=== PATIENT | male | born 1990 | race Caucasian/White ===

== ENCOUNTER 2021-07-15 17:36 | Emergency (ER) | payer OTHER, SELFPAY ==
[2021-07-15 17:47] VITALS: BP 143/99; PULSE 106; RESP 16; TEMP 36.7; O2SAT 97; BMI 36.8
--- NOTE | 2021-07-15 18:38 | XRR_ITS ---
PROCEDURE INFORMATION: Exam: XR Chest Exam date and time: 07/15/2021 6:46 PM Age: 31 years old Clinical indication: Pain; Angina pectoris; Additional info: Cp starting this morning TECHNIQUE: Imaging protocol: XR of the chest. Views: 1 view. COMPARISON: No relevant prior studies available. FINDINGS: Lungs: Unremarkable. No consolidation. Pleural spaces: Unremarkable. No pleural effusion. No pneumothorax. Heart/Mediastinum: Unremarkable. No cardiomegaly. Bones/joints: Unremarkable. XR/XR chest 1V portable [id number] IMPRESSION: No acute findings.
--- NOTE | 2021-07-15 18:39 | ECG_ITS ---
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 Measurements Intervals [place] Rate: 102 P: 54 [place]: 148 QRS: 114 QRSD: 115 T: 11 QT: 338 QTc: 441 Interpretive Statements SINUS TACHYCARDIA POSSIBLE RIGHT VENTRICULAR HYPERTROPHY [SOME/ALL OF: PROMINENT R IN V1, LATE TRANSITION, RAD, SOLA, SSS] No previous ECG available for comparison Electronically Signed On 07-17-2021 9:35:58 CDT by Bernardo Olvera M.D. [id number]
--- NOTE | 2021-07-15 18:43 | ED_ITS ---
HPI - Chest Pain General: Chief Complaint: Chest Pain Stated Complaint: Chest Pain Time Seen by Provider: 07/15/21 17:55 Source: patient Mode of arrival: ambulatory Limitations: no limitations History of Present Illness: 31-year-old male who states has been having chest pain this evening. States the pain is a sharp pain left side of his chest with radiation to his shoulder. He states been going on for roughly 1 to 2 hours. Denies any worsening proving factors denies any shortness of breath. He has no history of coronary artery disease. No cough or fever. Associated symptoms: Deny abdominal pain, dyspnea, fever(s), nausea or vomiting Review of Systems Const: Denies: fever(s), chills, body aches or change in appetite Eyes: Denies: blurry vision or eye discomfort ENMT: Denies: throat pain or dental pain Card: Reports: chest pain Resp: Denies: dyspnea GI: Denies: abdominal pain, nausea, vomiting or diarrhea : Denies: dysuria Musc: Denies: neck pain or back pain Skin/Breast: Denies: rash Neuro: Denies: headache(s) Psych: Denies: depression Rosendo/Lymph: Denies: easy bruising All/Imm: Denies: urticaria PFSH ED PFSH: Medical History (Updated 07/15/21 @ 22:01 by Jairon Tang MD) No pertinent family history Social History (Updated 07/15/21 @ 18:44 by Jairon Tang MD) Smoking and tobacco status: never smoked Physical Exam Const: COMMON NORMALS: no acute distress, patient oriented x3 and healthy appearing HENMT: COMMON NORMALS: normocephalic and atraumatic HEAD & SCALP: normocephalic and atraumatic Eye: COMMON NORMALS: Equal, round and reactive pupils present and EOMs intact bilaterally PUPIL: Yes Equal, round and reactive pupils present Neck/C-Spine: COMMON NORMALS: full ROM and supple Chest: COMMONS NORMALS: normal inspection of the chest and normal palpation of entire chest wall Resp: COMMON NORMALS: normal respiratory effort, No retractions, No use of accessory muscles and clear to auscultation bilaterally AUSCULTATION: clear to auscultation bilaterally Cardio: COMMON NORMALS: regular rate, regular rhythm and No murmurs present (Cardio) RATE: regular rate RHYTHM: regular rhythm GI: COMMON NORMALS: Normal to inspection, nondistended, normoactive bowel sounds present, Soft to palpation, non-tender and no masses PALPATION: Yes Soft to palpation Extremity: COMMON NORMALS: normal to inspection and full ROM Neuro: COMMON NORMALS: patient oriented x3, moves all extremities and no focal motor deficits Psych: COMMON NORMALS: mental status grossly normal, Normal thought process present and cooperative THOUGHT PROCESS: Normal thought process present Skin: COMMON NORMALS: no rashes or lesions noted and no wounds GENERAL SKIN EXAM: no rashes or lesions noted Course Vital Signs: Vital signs: Vital Signs Temperature 98.1 F 07/15/21 17:47 Pulse Rate 79 07/15/21 22:50 Respiratory Rate 16 07/15/21 22:50 Blood Pressure 149/83 07/15/21 22:50 Pulse Oximetry 97 07/15/21 22:50 MDM - Chest Pain Medical Decision Making Patient presents for chest pain is atypical in nature he is healthy with no risk factors initial repeat troponins here are both negative EKG is normal CT shows no signs of dissection or pulmonary embolism he stable for discharge he is to follow-up outpatient with cardiology and return if worsening he understands and agrees to the plan. Lab Data : 07/15/21 18:30 07/15/21 18:30 Radiology Impressions Chest X-Ray 07/15/21 18:38 IMPRESSION: No acute findings. Chest CTA 07/15/21 22:05 IMPRESSION: 1. Negative for pulmonary embolus or airspace infiltrate. 2. Scattered subcentimeter short axis mediastinal lymph nodes, nonspecific. 3. Small hiatal hernia. 4. Cholecystectomy. 5. Cardiomegaly suspected. Laboratory Results WBC 9.2 10^3/uL (4.0-10.0) 07/15/21 18:30 RBC 6.01 10^6/uL (4.1-5.3) H 07/15/21 18:30 Hgb 16.9 g/dL (11.7-16.6) H 07/15/21 18:30 Hct 51.0 % (42.0-52.0) 07/15/21 18:30 MCV 84.9 fl (80-94) 07/15/21 18:30 MCH 28.1 pg (28.0-34.0) 07/15/21 18:30 MCHC 33.1 g/dL (30.0-36.0) 07/15/21 18:30 RDW 12.7 % (12.1-15.1) 07/15/21 18:30 Plt Count 223 10^3/cmm (130-400) 07/15/21 18:30 MPV 9.8 fL (7.4-10.4) 07/15/21 18:30 Neut % (Auto) 60.4 % 07/15/21 18:30 Lymph % (Auto) 30.5 % 07/15/21 18:30 [place] % (Auto) 7.8 % 07/15/21 18:30 Eos % (Auto) 0.8 % 07/15/21 18: Baso % (Auto) 0.3 % 07/15/21 18: Neut # (Auto) 5.54 10^3/uL (1.8-7.7) 07/15/21 18: Lymph # (Auto) 2.8 10^3/uL (0.8-4.8) 07/15/21 18:30 [place] # (Auto) 0.7 10^3/uL (0.2-0.9) 07/15/21 18:30 Eos # (Auto) 0.1 10^3/uL (0.0-0.8) 07/15/21 18: Baso # (Auto) 0.0 10^3/uL (0.0-0.1) 07/15/21 18:30 Nucleated RBC % (auto) 0 % 07/15/21 18: Nucleated RBCs # 0.0 /100WBC 07/15/21 18: PT 13.30 SECONDS (12.1-14.9) 07/15/21 18:30 INR 0.98 (0.8-1.2) 07/15/21 18: D-Dimer 0.21 ug/mIFEU (0-0.59) 07/15/21 18:30 Sodium 140 mmol/L (136-145) 07/15/21 18:30 Potassium 3.6 mmol/L (3.5-5.1) 07/15/21 18: Chloride 103 mmol/L (98-107) 07/15/21 18: Carbon Dioxide 25 mmol/L (22-29) 07/15/21 18:30 Anion Gap 15.6 (5-19) 07/15/21 18:30 BUN 12 mg/dL (6-20) 07/15/21 18:30 Creatinine 1.0 mg/dL (0.7-1.2) 07/15/21 18:30 GFR Calculation 86.6 mL/min (90-130) L 07/15/21 18:30 Glucose 110 mg/dL (65-115) 07/15/21 18:30 Calculated Osmolality 290 mOsm/kg (285-295) 07/15/21 18:30 Calcium 10.1 mg/dL (8.5-10.5) 07/15/21 18:30 Total Bilirubin 0.4 mg/dL (0.15-1.2) 07/15/21 18:30 AST 29 U/L (0-40) 07/15/21 18:30 ALT 52 U/L (0-41) H 07/15/21 18:30 Alkaline Phosphatase 85 IU/L (40-130) 07/15/21 18:30 Troponin T Baseline 6 ng/L (0-15) 07/15/21 18:30 Troponin T 120 Minute 6.00 ng/L (0-15) 07/15/21 21:00 Delta Troponin T 0 ABS# (0-10) 07/15/21 21:00 NT-Pro-B Natriuret Pep 5 pg/mL (0-125) 07/15/21 18:30 Total Protein 7.3 g/dL (6.6-8.7) 07/15/21 18:30 Albumin 4.6 g/dL (3.5-5.2) 07/15/21 18:30 Globulin 2.7 g/dL (1.3-4.6) 07/15/21 18:30 EKG Data EKG 1: I personally reviewed and interpreted this EKG as follows: EKG interpretation date: 07/15/21 EKG interpretation time: 17:45 Interpretation: sinus tach hr [address] or t wave abnormalities qrs 115 qtc 397 Discharge Plan Discharge Patient Disposition: Home Clinical Impression: Chest pain Qualifiers: Chest pain type: unspecified Qualified Code(s): R07.9 - Chest pain, unspecified Prescriptions: New hydrocodone-acetaminophen 5-325 mg tablet 1 tab PO Q6H PRN (Reason: pain) Qty: 14 0RF Discharge Orders: Discharge ED (Routine); Ordered 07/15/21 Ordered By: Jairon Tang Referrals: Lori Walker MD [Physician] - 1-3 days Discharge Diet: Advance as tolerated Discharge Activity: Resume usual activity Patient Instructions: Chest Pain (ED) Coding Level of Care Code ED Manager Privacy for Chg Fwd Exam Comprehensive
[2021-07-15 18:53] VITALS: BP 143/99; PULSE 97; RESP 96; O2SAT 96
--- NOTE | 2021-07-15 18:56 | PC.NURSE ---
quality assurance monitor body placed on patient, ekg complete and given to provider. Patient in bed, denies any needs at this time. Family at bedside, call light within reach.
[2021-07-15 19:01] VITALS: BP 130/92; PULSE 95; RESP 20; O2SAT 96
[2021-07-15 19:17] LABS: Basophils % 0.3 %; Eosinophils # 0.1 10^3/uL (0.0-0.8); Eosinophils % 0.8 %; Hemoglobin 16.9 g/dL (11.7-16.6); Lymphocytes # 2.8 10^3/uL (0.8-4.8); Lymphocytes % 30.5 %; Mean Corpuscular HGB Conc 33.1 g/dL (30.0-36.0); Mean Corpuscular Hemoglobin 28.1 pg (28.0-34.0); Mean Corpuscular Volume 84.9 fl (80-94); Mean Platelet Volume 9.8 fL (7.4-10.4); Monocytes # 0.7 10^3/uL (0.2-0.9); Monocytes % 7.8 %; Neutrophils # 5.54 10^3/uL (1.8-7.7); Neutrophils % 60.4 %; Nucleated Red Blood Cells % 0 %; Platelet Count 223 10^3/cmm (130-400); Red Blood Count 6.01 10^6/uL (4.1-5.3); Red Cell Distribution Width 12.7 % (12.1-15.1); White Blood Count 9.2 10^3/uL (4.0-10.0)
--- NOTE | 2021-07-15 19:19 | PC.NURSE ---
Report given to Fabrizio CAR.
[2021-07-15 19:50] LABS: Troponin(5th) Baseline 6 ng/L (0-15)
[2021-07-15 19:54] LABS: D Dimer 0.21 ug/mIFEU (0-0.59); INR 0.98 (0.8-1.2)
[2021-07-15 20:00] LABS: Alanine Aminotransferase 52 U/L (0-41); Albumin Level 4.6 g/dL (3.5-5.2); Alkaline Phosphatase 85 IU/L (40-130); Anion Gap 15.6 (5-19); Aspartate Amino Transferase 29 U/L (0-40); Blood Urea Nitrogen 12 mg/dL (6-20); Calcium 10.1 mg/dL (8.5-10.5); Carbon Dioxide 25 mmol/L (22-29); Chloride 103 mmol/L (98-107); Globulin 2.7 g/dL (1.3-4.6); Glomerular Filtration Rate 86.6 mL/min (90-130); Glucose 110 mg/dL (65-115); NT Pro B Type Natriuretic Pept 5 pg/mL (0-125); Osmolality Calculated 290 mOsm/kg (285-295); Potassium 3.6 mmol/L (3.5-5.1); Sodium 140 mmol/L (136-145); Total Bilirubin 0.4 mg/dL (0.15-1.2); Total Protein 7.3 g/dL (6.6-8.7)
[2021-07-15 21:58] VITALS: BP 155/93; PULSE 79; RESP 16; O2SAT 97
--- NOTE | 2021-07-15 22:05 | CTR_ITS ---
PROCEDURE INFORMATION: Exam: CTA Chest With Contrast Exam date and time: 07/15/2021 10:23 PM Age: 31 years old Clinical indication: Shortness of breath; Chest pressure; Patient HX: C/O chest pain with SOB. Patient states history of cardiomegaly. TECHNIQUE: Imaging protocol: Computed tomographic angiography of the chest with contrast. 3D rendering (Not supervised by radiologist): MIP and/or 3D reconstructed images were created by the technologist. Radiation optimization: All CT scans at this facility use at least one of these dose optimization techniques: automated exposure control; mA and/or kV adjustment per patient size (includes targeted exams where dose is matched to clinical indication); or iterative reconstruction. Contrast material: OMNI 350; Contrast volume: 79 ml; Contrast route: INTRAVENOUS (IV); COMPARISON: CR (CHEST, ) 07/15/2021 6:46 PM RADIATION DOSE METRICS: Total DLP (mGy-cm): 595.84 FINDINGS: Pulmonary arteries: Normal. No pulmonary emboli. Aorta: Unremarkable. No aortic aneurysm. No aortic dissection. Lungs: Unremarkable. No consolidation. No masses. Pleural spaces: Unremarkable. No pneumothorax. No pleural effusion. Heart: Cardiomegaly suspected. Lymph nodes: Scattered subcentimeter short axis mediastinal lymph nodes, nonspecific. Diaphragm: Small hiatal hernia. Gallbladder and bile ducts: Cholecystectomy. Bones/joints: Unremarkable. No acute fracture. Soft tissues: Unremarkable. CT/CT angio chest PE protcl [id number] IMPRESSION: 1. Negative for pulmonary embolus or airspace infiltrate. 2. Scattered subcentimeter short axis mediastinal lymph nodes, nonspecific. 3. Small hiatal hernia. 4. Cholecystectomy. 5. Cardiomegaly suspected.
[2021-07-15 22:10] LABS: Troponin 5 2HR Delta 0 ABS# (0-10)
[2021-07-15 22:11] VITALS: RESP 16
[2021-07-15] MEDS: morphine 4 mg/mL SDV 1 mL IVP (22:11)
[2021-07-15] MEDS: ondansetron 2 mg/ML SDV 2 mL 4 MG IVP (22:12)
[2021-07-15 22:50] VITALS: BP 149/83; PULSE 79; RESP 16; O2SAT 97
--- NOTE | 2021-07-16 10:05 | DCPLANNER ---
Addendum entered by Cinthia Bella 09/11/21 18:00: Patient had a follow up appointment scheduled for 09.09.21 with [facility] - patient did not attend appointment. Addendum entered by Cinthia Bella 07/17/21 13:23: occupational health nurse manager called phone number [phone] to give patient appointment information. occupational health nurse manager was unable to speak with patient at this time, a voicemail was left for patient to return social work case manager phone call. occupational health nurse manager sent patient a letter with appointment information. Addendum entered by Cinthia Bella 07/16/21 15:08: Patient has a follow up appointment scheduled for Thursday, September 09, 2021 at 10:[address] Walker. occupational health nurse manager called phone number [phone], unable to speak with patient at this time, a voicemail was left for patient to return social work case manager phone call. Original Note: occupational health nurse manager had message to schedule a follow up appointment for patient with [facility]. occupational health nurse manager sent patients information to the front staff at [facility] thru the workload system. Patients information will be printed and reviewed. Clinic will call notify case briefer of appointment information. occupational health nurse manager will call patient with appointment information.
== END 2021-07-15 22:51 | disposition home or self-care (01) ==
PROVIDERS: Emergency Provider Emergency Medicine
DX: R07.9 Chest pain, unspecified (principal); K44.9 Diaphragmatic hernia without obstruction or gangrene
CPT/HCPCS: 71045; 71275; 80053; 83880; 84484; 85025; 85378; 85610; 93005; 96374; 96375; 99284; J2270; J2405; Q9967

== ENCOUNTER 2022-06-08 15:29 | Emergency (ER) | payer SELFPAY ==
[2022-06-08 15:32] VITALS: BP 165/113; PULSE 80; RESP 16; TEMP 36.8; O2SAT 98; BMI 37.5
--- NOTE | 2022-06-08 15:44 | CTR_ITS ---
PROCEDURE INFORMATION: Exam: CT Head Without Contrast Exam date and time: 06/08/2022 3:52 PM Age: 32 years old Clinical indication: Weakness, extremity and weakness, facial; Left; Additional info: L side weakness TECHNIQUE: Imaging protocol: Computed tomography of the head without contrast. Radiation optimization: All CT scans at this facility use at least one of these dose optimization techniques: automated exposure control; mA and/or kV adjustment per patient size (includes targeted exams where dose is matched to clinical indication); or iterative reconstruction. REPORTING DATA: Count of CT and Cardiac NM exams in prior 12 months: This patient has received [address] and 0 known cardiac nuclear medicine studies in the 12 months prior to the current study. COMPARISON: No relevant prior studies available. RADIATION DOSE METRICS: Total DLP (mGy-cm): 1194.58 FINDINGS: Brain: Normal. No hemorrhage. Unremarkable white matter. No mass effect. Cerebral ventricles: No ventriculomegaly. Paranasal sinuses: Visualized sinuses are unremarkable. No fluid levels. Mastoid air cells: Visualized mastoid air cells are well aerated. Bones/joints: Unremarkable. No acute fracture. Soft tissues: Unremarkable. CT/CT head wo con* [id number] IMPRESSION: No acute intracranial abnormality.
--- NOTE | 2022-06-08 15:44 | XRR_ITS ---
PROCEDURE INFORMATION: Exam: XR Chest Exam date and time: 06/08/2022 3:54 PM Age: 32 years old Clinical indication: Cough and dyspnea; Additional info: Dyspnea/cough TECHNIQUE: Imaging protocol: Radiologic exam of the chest. Views: 1 view. COMPARISON: CR XR chest 1V portable [id number] 07/15/2021 6:46 PM FINDINGS: Lungs: Unremarkable. No consolidation. Pleural spaces: Unremarkable. No pleural effusion. No pneumothorax. Heart/Mediastinum: Unremarkable. No cardiomegaly. Bones/joints: Unremarkable. XR/XR chest 1V portable [id number] IMPRESSION: No acute findings.
--- NOTE | 2022-06-08 15:45 | PC.NURSE ---
PT PLACED ON CONTINUOUS SPO2, NIBP, AND CM.
--- NOTE | 2022-06-08 15:49 | ECG_ITS ---
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 [id number]
[2022-06-08 15:58] LABS: Basophils % 0.2 %; Eosinophils # 0.1 10^3/uL (0.0-0.8); Eosinophils % 1.4 %; Hematocrit 46.3 % (42.0-52.0); Hemoglobin 15.7 g/dL (11.7-16.6); Lymphocytes # 3.6 10^3/uL (0.8-4.8); Lymphocytes % 40.1 %; Mean Corpuscular HGB Conc 33.9 g/dL (30.0-36.0); Mean Corpuscular Hemoglobin 28.8 pg (28.0-34.0); Mean Corpuscular Volume 84.8 fl (80-94); Mean Platelet Volume 9.5 fL (7.4-10.4); Monocytes # 0.6 10^3/uL (0.2-0.9); Monocytes % 7.2 %; Neutrophils # 4.51 10^3/uL (1.8-7.7); Neutrophils % 50.9 %; Nucleated Red Blood Cells % 0 %; Platelet Count 216 10^3/cmm (130-400); Red Blood Count 5.46 10^6/uL (4.1-5.3); Red Cell Distribution Width 12.6 % (12.1-15.1); White Blood Count 8.9 10^3/uL (4.0-10.0)
[2022-06-08 16:14] LABS: Alanine Aminotransferase 61 U/L (0-41); Albumin Level 4.3 g/dL (3.5-5.2); Alkaline Phosphatase 90 U/L (40-130); Anion Gap 15.9 (5-19); Aspartate Amino Transferase 35 U/L (0-40); Blood Urea Nitrogen 10 mg/dL (6-20); Calcium 9.7 mg/dL (8.5-10.5); Carbon Dioxide 25 mmol/L (22-29); Chloride 103 mmol/L (98-107); Globulin 3.6 g/dL (1.3-4.6); Glomerular Filtration Rate 86.1 mL/min (90-130); Glucose 109 mg/dL (65-115); Osmolality Calculated 290 mOsm/kg (285-295); Potassium 3.9 mmol/L (3.5-5.1); Sodium 140 mmol/L (136-145); Total Bilirubin 0.3 mg/dL (0.15-1.2); Total Protein 7.9 g/dL (6.6-8.7)
--- NOTE | 2022-06-08 16:14 | ED_ITS ---
HPI - Weakness General: Chief complaint: Weakness Stated complaint: stroke like symptoms Time Seen by Provider: 06/08/22 15:42 Source: patient Mode of arrival: ambulatory History of Present Illness: 32-year-old male presents emergency room complaining of what he describes as strokelike symptoms he has pain on the left side of his face particularly across the zygomatic arch does not cross the midline he has not noticed any difficulty with speech or swallowing. He was concerned he was having a stroke. Pain is rather severe sudden onset today he has had similar symptoms in the past that were attributed to him having had a st roke. He generally feels weak and uncomfortable now but is able to ambulate here. MD Complaint: focal weakness Onset (ago): hour(s) Duration: constant Location: face Migration: none Severity: moderate Quality: sharp Relieving factors: none Exacerbating factors: none Associated symptoms: Denies chest pain, chills, confusion, melena, decreased appetite, diaphoresis, dysuria, easy bruising, fever(s), headache(s), myalgias, nausea, rash, short of breath, syncope or vomiting Review of Systems Const: Denies: fever(s), chills, fatigue, malaise or diaphoresis ENMT: Denies: throat pain, ear or mastoid pain, nasal discharge or nasal congestion Card: Denies: chest pain, palpitations, irregular heart rhythm, edema or syncope Resp: Denies: dyspnea, productive cough or non-productive cough GI: Denies: abdominal pain, nausea, vomiting or melena : Denies: dysuria, urinary frequency or urinary urgency Skin/Breast: Denies: rash or pruritus Neuro: Denies: headache(s) or confusion Rosendo/Lymph: Denies: easy bruising PFS ED PFSH: Medical History No pertinent family history Social History Smoking and tobacco status: never smoked Physical Exam Const: COMMON NORMALS: no acute distress GENERAL APPEARANCE: cooperative and comfortable ORIENTATION/CONSCIOUSNESS: Yes awake, Yes oriented to person, Yes oriented to place and Yes oriented to time HENMT: COMMON NORMALS: normocephalic, atraumatic, hearing grossly normal bilaterally, external ears normal, EAC's normal, TM's normal bilaterally, Normal nasal mucous membranes and turbinates present, moist oral mucous membranes and oropharynx normal HEAD & SCALP: normocephalic and atraumatic NOSE: Normal nasal mucous membranes and turbinates present EXTERNAL EAR: Yes external ears normal EXTERNAL AUDITORY CANAL: EAC's normal TYMPANIC MEMBRANE: TM's normal bilaterally Eye: COMMON NORMALS: Equal, round and reactive pupils present, EOMs intact bilaterally, conjunctivae normal and no scleral icterus CONJUNCTIVA: Yes conjunctivae normal PUPIL: Yes Equal, round and reactive pupils present Neck/C-Spine: COMMON NORMALS: full ROM, no lymphadenopathy, supple and no JVD Lymph: LYMPHATIC: no lymphadenopathy noted and no lymphedema noted Resp: COMMON NORMALS: normal respiratory effort, No retractions, No use of accessory muscles and clear to auscultation bilaterally AUSCULTATION: clear to auscultation bilaterally Cardio: COMMON NORMALS: no JVD, regular rate, regular rhythm and No murmurs present (Cardio) RATE: regular rate RHYTHM: regular rhythm GI: COMMON NORMALS: Soft to palpation and No hepatosplenomegaly present AUSCULTATION: Yes normoactive bowel sounds PALPATION: Yes Soft to palpation, No Tenderness to palpation present (GI), No Guarding due to palpation present (GI) and Yes No hepatosplenomegaly present Extremity: COMMON NORMALS: normal to inspection, capillary refill normal, no clubbing, cyanosis or edema, no calf tenderness and no pedal edema Neuro: SENSORIUM/ORIENTATION: Yes oriented to person, Yes oriented to place and Yes oriented to time Skin: COMMON NORMALS: no rashes or lesions noted GENERAL SKIN EXAM: no rashes or lesions noted Course Vital Signs: Vital signs: Vital Signs Temperature 98.2 F 06/08/22 15:32 Pulse Rate 82 06/08/22 17:43 Respiratory Rate 21 H 06/08/22 17:43 Blood Pressure 148/94 06/08/22 17:43 Pulse Oximetry 97 06/08/22 17:43 Oxygen Delivery Me thod 06/08/22 15:32 MDM - Weakness Medical Decision Making NIH done is 0 with the exception of altered sensation on the left side of the face and distribution of the facial nerve. [id number] rapid alternating movements hands are normal. Suspect based on the patient's presenting complaint he has a trigeminal neuralgia is describing a rather sharp pain he does not have any facial droop or ear pain associated with a Galvan's palsy we will start him on Tegretol have him follow-up with his primary care return if he has further problems Medical Records I reviewed the patient's medical records. Lab Data I reviewed the patient's lab results. 06/08/22 15:44 06/08/22 15:44 Radiology Impressions Chest X-Ray 06/08/22 15:44 IMPRESSION: No acute findings. Head CT 06/08/22 15:44 IMPRESSION: No acute intracranial abnormality. Laboratory Results WBC 8.9 10^3/uL (4.0-10.0) 06/08/22 15:44 RBC 5.46 10^6/uL (4.1-5.3) H 06/08/22 15:44 Hgb 15.7 g/dL (11.7-16.6) 06/08/22 15:44 Hct 46.3 % (42.0-52.0) 06/08/22 15:44 MCV 84.8 fl (80-94) 06/08/22 15:44 MCH 28.8 pg (28.0-34.0) 06/08/22 15:44 MCHC 33.9 g/dL (30.0-36.0) 06/08/22 15:44 RDW 12.6 % (12.1-15.1) 06/08/22 15:44 Plt Count 216 10^3/cmm (130-400) 06/08/22 15:44 MPV 9.5 fL (7.4-10.4) 06/08/22 15:44 Neut % (Auto) 50.9 % 06/08/22 15:44 Lymph % (Auto) 40.1 % 06/08/22 15:44 [place] % (Auto) 7.2 % 06/08/22 15:44 Eos % (Auto) 1.4 % 06/08/22 15:44 Baso % (Auto) 0.2 % 06/08/22 15:44 Neut # (Auto) 4.51 10^3/uL (1.8-7.7) 06/08/22 15:44 Lymph # (Auto) 3.6 10^3/uL (0.8-4.8) 06/08/22 15:44 [place] # (Auto) 0.6 10^3/uL (0.2-0.9) 06/08/22 15:44 Eos # (Auto) 0.1 10^3/uL (0.0-0.8) 06/08/22 15:44 Baso # (Auto) 0.0 10^3/uL (0.0-0.1) 06/08/22 15:44 Nucleated RBC % (auto) 0 % 06/08/22 15:44 Nucleated RBCs # 0.0 /100WBC 06/08/22 15:44 Sodium 140 mmol/L (136-145) 06/08/22 15:44 Potassium 3.9 mmol/L (3.5-5.1) 06/08/22 15:44 Chloride 103 mmol/L (98-107) 06/08/22 15:44 Carbon Dioxide 25 mmol/L (22-29) 06/08/22 15:44 Anion Gap 15.9 (5-19) 06/08/22 15:44 BUN 10 mg/dL (6-20) 06/08/22 15:44 Creatinine 1.0 mg/dL (0.7-1.2) 06/08/22 15:44 GFR Calculation 86.1 mL/min (90-130) L 06/08/22 15:44 Glucose 109 mg/dL (65-115) 06/08/22 15:44 Calculated Osmolality 290 mOsm/kg (285-295) 06/08/22 15:44 Calcium 9.7 mg/dL (8.5-10.5) 06/08/22 15:44 Total Bilirubin 0.3 mg/dL (0.15-1.2) 06/08/22 15:44 AST 35 U/L (0-40) 06/08/22 15:44 ALT 61 U/L (0-41) H 06/08/22 15:44 Alkaline Phosphatase 90 U/L (40-130) 06/08/22 15:44 Total Protein 7.9 g/dL (6.6-8.7) 06/08/22 15:44 Albumin 4.3 g/dL (3.5-5.2) 06/08/22 15:44 Globulin 3.6 g/dL (1.3-4.6) 06/08/22 15:44 Discharge Plan Discharge Patient Disposition: Home Clinical Impression: Trigeminal neuralgia Condition: Stable Prescriptions: New Tegretol 200 mg tablet 200 mg PO BID Qty: 60 0RF Discharge Orders: Discharge ED (Routine); Ordered 06/08/22 Ordered By: Jose Vera Discharge Diet: Usual diet Discharge Activity: Increase activity as tolerated Patient Instructions: Opioid Safety, Pain Management Activity Restrictions/Additional Instructions: You are seen today for facial pain and numbness. CT of your head was negative for stroke. You are being treated for trigeminal neuralgia take 1 tablet of carbamazepine twice daily. Case management make arrangements for you to follow- up with neurology. Coding Level of Care Code ED Press Operator Helper for Elizabeth Long
[2022-06-08 17:43] VITALS: BP 148/94; PULSE 82; RESP 21; O2SAT 97
--- NOTE | 2022-06-09 09:39 | DCPLANNER ---
Addendum entered by Cinthia Bella 06/30/22 08:34: Patient had a follow up appointment scheduled with neurology - patient did not attend appointment Addendum entered by Cinthia Bella 06/24/22 11:30: Patient has a follow up appointment scheduled for Tuesday, June 28, 2022 at 10:[address] Farmer at neurology. Clinic will call patient with appointment information. Original Note: automated teller manager had message to schedule a follow up appointment for patient with neurology. automated teller manager sent patients information to the front office staff at neurology. Patients information will be printed and reviewed. Clinic will call patient with appointment information.
== END 2022-06-08 17:44 | disposition home or self-care (01) ==
PROVIDERS: Emergency Provider Family Medicine
DX: G50.0 Trigeminal neuralgia (principal)
CPT/HCPCS: 70450; 71045; 80053; 85025; 93005; 99285

== ENCOUNTER 2022-12-29 13:22 | Outpatient (CLI) | payer BC, SELFPAY ==
--- NOTE | 2022-12-29 13:37 | MR_ITS ---
WS: [id number] MRI RIGHT KNEE NONCONTRAST TECHNIQUE: Axial PD, coronal PD fat sat, coronal PD, sagittal PD, and sagittal PD fat-sat images obta ined. CLINICAL INFORMATION: INSTABILITY OF R KNEE JOINT COMPARISON: None. FINDINGS: Some images degraded by patient motion. Distal quadriceps and patella tendons are intact. Hypertrophic patella. ACL appears intact. Normal PC L. Chronic appearing thinning of the medial and lateral meniscus. No acute appearing meniscal tears. Normal medial and lateral collateral ligament. Normal popliteus. Moderate chondromalacia patella. No subchondral edema. Normal medial and patellar retinaculum. Normal popliteal fossa. IMPRESSION: 1. ACL and PCL appear intact. 2. Moderate chondromalacia patella advanced for patient this age. No subchondral edema. 3. Medial and lateral collateral ligaments appear intact. 4. Chronic appearing thinning of the medial and lateral meniscus, worse in the medial meniscus. No a cute appearing meniscal tears. 5. Medial and lateral collateral ligaments appear intact. 6. No other acute findings. Outbridge grading: grade III: partial-thickness cartilage loss with focal ulceration
== END 2022-12-29 13:23 | disposition home or self-care (01) ==
PROVIDERS: Visit Provider Nurse Practitioner
DX: M23.51 Chronic instability of knee, right knee (principal); M22.41 Chondromalacia patellae, right knee
CPT/HCPCS: 73721

== ENCOUNTER → 2023-06-13 13:47 | Outpatient (BNVA) | payer BC, SELFPAY | PROVIDERS: PCP Family Medicine; Visit Provider Family Medicine | DX: K27.9 Peptic ulcer, site unspecified, unspecified as acute or chronic, without hemorrhage or perforation (principal); K21.9 Gastro-esophageal reflux disease without esophagitis; F41.9 Anxiety disorder, unspecified; F43.10 Post-traumatic stress disorder, unspecified | CPT/HCPCS: 80053; 80061; 83721; 84443; 85025 ==

== ENCOUNTER 2023-07-28 10:57 | Day surgery (SDC) | payer BC, SELFPAY ==
[2023-07-28 11:28] VITALS: BP 135/75; PULSE 76; RESP 18; TEMP 36.3; O2SAT 96; BMI 41.1
[2023-07-28] MEDS: sodium chloride 0.9% 1,000 ML 30 ML IV (11:33)
--- NOTE | 2023-07-28 12:14 | ANES.PREANE2 ---
Pre-Anesthetic Assessment Height/Weight: Height 1.91 m Weight 149.232 kg Temp Pulse Resp BP Pulse Ox O2 Del Method 97.3 F L 76 18 135/75 96 Room Air 07/28/23 11:28 07/28/23 11:28 07/28/23 11:28 07/28/23 11:28 07/28/23 11:28 07/28/23 11:28 Preop Diagnosis: GERD Operation Date: 07/28/23 12:15 Proposed Procedures p EGD(Not Applicable) - Lane Mckinley DO Familial anesthetic complications: none Was Beta Tam taken within 24 hours: N/A Was Clonidine taken within 24 hours: N/A Last intake: Intake Last Liquid Date 07/27/23 Last Liquid Time 20:00 Last Solid Date 07/27/23 Last Solid Time 18:30 Social Alcohol (occasional) and No tobacco (chew) Exam alert, oriented x 3, clear to auscultation bilaterally and regular rate & rhythm Airway Submandibular: within normal limits Cervical ROM: within normal limits Mallampati: Class II Dentition: full Pulmonary Sleep Apnea CV/HEM None reported None reported Hepatic None reported GI Gastroesophageal Reflux Disease (uncontrolled) Metabolic Hyperlipidemia [facility] Osteoarthritis/DJD Neuropsych Anxiety, Depression and Headache (migraines) Anesthetic Plan ASA status: 2 Anesthesia: MAC Risk of > 500 ml blood loss (7ml/kg in children): No Medications/Allergies Home Medications Medication Instructions Recorded Confirmed Last Taken Type sumatriptan succinate 25 mg tablet See Rx Instructions PO .COMPLEX 06/14/23 07/28/23 07/27/23 Rx #10 tabs paroxetine HCl 20 mg tablet 20 mg PO DAILY #30 tabs 07/08/23 07/28/23 07/27/23 Rx prazosin 1 mg capsule 1 mg PO .qhs #30 caps 07/08/23 07/28/23 07/27/23 Rx sucralfate 1 gram tablet (Carafate) 1 g PO BID #60 tabs 07/08/23 07/28/23 07/27/23 Rx amitriptyline 25 mg tablet 25 mg PO .qhs #30 tabs 07/18/23 07/28/23 07/27/23 Rx pantoprazole 40 mg tablet,delayed 40 mg PO BID #60 tabs 07/18/23 07/28/23 07/27/23 Rx release omega-3 fatty acids 1 cap PO DAILY 07/26/23 07/28/23 07/27/23 History Allergies Allergy/AdvReac Type Severity Reaction Status Date / Time amoxicillin Allergy ALGY-Rash Verified 07/28/23 11:27 Current Medications Generic Name Dose Route Start Last Admin Trade Name Freq PRN Reason Stop Dose Admin Sodium Chloride 1,000 mls @ 30 mls/hr 07/28/23 11:15 07/28/23 11:33 Sodium Chloride 0.9% IV 07/29/23 11:14 30 mls/hr .Q24H MARCELLO Administration PFSH Anesthesia Medical History (Updated 07/25/23 @ 10:[address]ckinley DO) History of peptic ulcer disease Obesity Migraines GERD (gastroesophageal reflux disease) PTSD (post-traumatic stress disorder) Anxiety Surgical History History of cholecystectomy Family History Grandfather Congestive heart failure (CHF) Grandmother Cancer Social History Smoking and tobacco/nicotine status: never used tobacco/nicotine Alcohol intake: never Substance/Drug Use: never Household members: significant other and children Marital status: Number of children: 3 service: Yes branch: [employer] Assignments: Deployed Countries/Dates of Deployments: [place] Current occupational status: employed 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
--- NOTE | 2023-07-28 12:52 | W.PM.OPSUD ---
Surgery/Procedure H&P Update DATE OF PROCEDURE: July 28, 2023 DATE H&P PERFORMED: 07/24/26 H&P UPDATE INFORMATION: I have reviewed H&P completed within last 30 days, I have examined patient prior to procedure and No changes to prior documentation PREOP DIAGNOSIS: GERD PLANNED PROCEDURE: Operation Date: 07/28/23 12:15 Proposed Procedures p EGD(Not Applicable) - Lane Mckinley DO
[2023-07-28 13:03] VITALS: BP 118/78; PULSE 69; RESP 18; TEMP 35; O2SAT 97
[2023-07-28 13:10] VITALS: BP 122/89; PULSE 75; RESP 18; O2SAT 98
[2023-07-28 13:20] VITALS: BP 125/93; PULSE 70; RESP 18; O2SAT 96
--- NOTE | 2023-07-28 15:01 | ANE.PACU2 ---
Inpatient post-anesthesia follow up: Airway intact: Yes Vital signs: Temperature 95 F Pulse Rate 70 Respiratory Rate 18 Blood Pressure 125/93 Pulse Oximetry 96 Oxygen Delivery Me thod Room Air Oxygen Flow Rate Fraction of Inspir ed Oxygen Hydration adequate: Yes Nausea and vomiting: No Pain level: 2 Mental status: Baseline
== END 2023-07-28 13:38 | disposition home or self-care (01) ==
PROVIDERS: PCP Family Medicine; Visit Provider Surgery
PROC: 0DJ08ZZ Inspection of Upper Intestinal Tract, Via Natural or Artificial Opening Endoscopic (ICD-10-PCS; CPT 43235; principal; 2023-07-28 12:15)
DX: K21.9 Gastro-esophageal reflux disease without esophagitis (principal); K44.9 Diaphragmatic hernia without obstruction or gangrene; K31.7 Polyp of stomach and duodenum; G47.30 Sleep apnea, unspecified; E78.5 Hyperlipidemia, unspecified; Z87.11 Personal history of peptic ulcer disease; Z80.0 Family history of malignant neoplasm of digestive organs; K92.1 Melena
CPT/HCPCS: 43239; 88305; J2704; J7030

== ENCOUNTER 2023-08-02 08:08 | Emergency (ER) | payer BC, SELFPAY ==
[2023-08-02] VITALS (8 sets, daily range): BP systolic 150; BP diastolic 93; PULSE 74; TEMP 36.8; O2SAT 93–97; BMI 41.2
[2023-08-02 09:08] LABS: Basophils % 0.3 %; Eosinophils # 0.1 10^3/uL (0.0-0.8); Eosinophils % 1.3 %; Hematocrit 41.9 % (37-53); Lymphocytes # 2.2 10^3/uL (0.8-4.8); Lymphocytes % 29.3 %; Mean Corpuscular HGB Conc 33.7 g/dL (30-55); Mean Corpuscular Hemoglobin 28.4 pg (27-33); Mean Corpuscular Volume 84.5 fl (82-101); Mean Platelet Volume 9.4 fL (7.4-10.4); Monocytes # 0.5 10^3/uL (0.2-0.9); Monocytes % 6.1 %; Neutrophils # 4.71 10^3/uL (1.8-7.7); Neutrophils % 62.6 %; Nucleated Red Blood Cells % 0 %; Platelet Count 187 10^3/cmm (157-399); Red Blood Count 4.96 10^6/uL (3.85-5.65); White Blood Count 7.52 10^3/uL (3.29-11.43)
--- NOTE | 2023-08-02 09:19 | ED_ITS ---
HPI - Abdominal Pain 2 General: Chief Complaint: Abdominal Pain Stated Complaint: abd pain , weakness Time Seen by Provider: 08/02/23 08:50 History of Present Illness: Patient presents to the ER with complaints of upper epigastric type abdominal pain. This has been going on for about the last 2 days. Patient did have an EGD done last approximately [address] Mckinley he says he does have a hiatal hernia otherwise pretty unremarkable. Patient is concerned because he also has been having fever and chills off and on for the last 24 hours. Patient states this pain is different than his normal acid reflux type pain. Review of Systems 2 General: Reports: 10 or more systems reviewed and unremarkable except in HPI and below PFSH ED 2 PFSH: Medical History History of peptic ulcer disease Obesity Migraines GERD (gastroesophageal reflux disease) PTSD (post-traumatic stress disorder) Anxiety Surgical History History of cholecystectomy Family History Grandfather Congestive heart failure (CHF) Grandmother Cancer Social History Smoking and tobacco/nicotine status: never used tobacco/nicotine Alcohol intake: never Substance/Drug Use: never Household members: significant other and children Marital status: Number of children: 3 service: Yes branch: [employer] Assignments: Deployed Countries/Dates of Deployments: [place] Current occupational status: employed 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/Episcopalian: Zoroastrianism Special chantel needs: No Agree to transfusion: Yes Physical Exam 2 Const: COMMON NORMALS: no acute distress, average body habitus, patient oriented x3, no limitations, healthy appearing, alert and well nourished HENMT: COMMON NORMALS: normocephalic, atraumatic, hearing grossly normal bilaterally, external ears normal, Normal external nose present, moist oral mucous membranes and oropharynx normal HEAD & SCALP: normocephalic and atraumatic NOSE: Normal external nose present EXTERNAL EAR: Yes external ears normal Eye: COMMON NORMALS: Equal, round and reactive pupils present, EOMs intact bilaterally, conjunctivae normal and no scleral icterus CONJUNCTIVA: Yes conjunctivae normal PUPIL: Yes Equal, round and reactive pupils present Neck/C-Spine: COMMON NORMALS: full ROM, no lymphadenopathy, supple, no meningeal signs, no JVD and Thyroid normal THYROID: Thyroid normal Chest: COMMONS NORMALS: normal inspection of the chest and normal palpation of entire chest wall Resp: COMMON NORMALS: normal respiratory effort, No retractions, No use of accessory muscles and clear to auscultation bilaterally AUSCULTATION: clear to auscultation bilaterally Cardio: COMMON NORMALS: no JVD, regular rate, regular rhythm, S1 normal heart sound present, S2 normal heart sound present, No gallops present (Cardio), No clicks present (Cardio), No murmurs present (Cardio) and No rub (Cardio) R ATE: regular rate RHYTHM: regular rhythm HEART SOUNDS: S1 normal heart sound present and S2 normal heart sound present Neuro: COMMON NORMALS: patient oriented x3 SENSORIUM/ORIENTATION: Yes alert MENINGEAL SIGNS: Yes no meningeal signs Course 2 Vital Signs: Vital signs: Vital Signs Temperature 98.2 F 08/02/23 08:31 Pulse Rate 74 08/02/23 08:31 Blood Pressure 150/93 08/02/23 08:31 Pulse Oximetry 97 08/02/23 11:38 Oxygen Delivery Me thod Room Air 08/02/23 11:38 MDM - Abdominal Pain Medical Decision Making Patient physical exam work and lab work obtained all which was essentially unremarkable. Patient just recently had an EGD by Dr. Mckinley that sounds like it was unremarkable except for hiatal hernia. This pain may be coming from patient's hiatal hernia he is yet to follow-up with Dr. Mckinley. Patient be discharged from the ER. Differential Diagnosis Likely abdominal pain; Unlikely acute appendicitis, calculus of kidney, constipation, diverticulitis, endometriosis, gastroenteritis, pancreatitis or small bowel obstruction Medical Records I reviewed the patient's medical records. Lab Data I reviewed the patient's lab results. 08/02/23 08:40 08/02/23 08:40 Labs/Radiology: Laboratory Results WBC 7.52 10^3/uL (3.29-11.43) 08/02/23 08:40 RBC 4.96 10^6/uL (3.85-5.65) 08/02/23 08:40 Hgb 14.10 g/dL (11.27-16.99) 08/02/23 08:40 Hct 41.9 % (37-53) 08/02/23 08:40 MCV 84.5 fl (82-101) 08/02/23 08:40 MCH 28.4 pg (27-33) 08/02/23 08:40 MCHC 33.7 g/dL (30-55) 08/02/23 08:40 RDW 13.0 % (12.1-15.1) 08/02/23 08:40 Plt Count 187 10^3/cmm (157-399) 08/02/23 08:40 MPV 9.4 fL (7.4-10.4) 08/02/23 08:40 Neut % (Auto) 62.6 % 08/02/23 08:40 Lymph % (Auto) 29.3 % 08/02/23 08:40 [place] % (Auto) 6.1 % 08/02/23 08:40 Eos % (Auto) 1.3 % 08/02/23 08:40 Baso % (Auto) 0.3 % 08/02/23 08:40 Neut # (Auto) 4.71 10^3/uL (1.8-7.7) 08/02/23 08:40 Lymph # (Auto) 2.2 10^3/uL (0.8-4.8) 08/02/23 08:40 [place] # (Auto) 0.5 10^3/uL (0.2-0.9) 08/02/23 08:40 Eos # (Auto) 0.1 10^3/uL (0.0-0.8) 08/02/23 08:40 Baso # (Auto) 0.0 10^3/uL (0.0-0.1) 08/02/23 08:40 Nucleated RBC % (auto) 0 % 08/02/23 08:40 Nucleated RBCs # 0.0 /100WBC 08/02/23 08:40 Sodium 140 mmol/L (136-145) 08/02/23 08:40 Potassium 3.8 mmol/L (3.5-5.1) 08/02/23 08:40 Chloride 106 mmol/L (98-107) 08/02/23 08:40 Carbon Dioxide 23 mmol/L (22-29) 08/02/23 08:40 Anion Gap 14.8 (5-19) 08/02/23 08:40 BUN 14 mg/dL (6-20) 08/02/23 08:40 Creatinine 0.8 mg/dL (0.7-1.2) 08/02/23 08:40 GFR Calculation 110.7 mL/min (90-130) 08/02/23 08:40 Glucose 96 mg/dL (65-115) 08/02/23 08:40 Calculated Osmolality 290 mOsm/kg (285-295) 08/02/23 08:40 Calcium 9.1 mg/dL (8.5-10.5) 08/02/23 08:40 Total Bilirubin 0.5 mg/dL (0.15-1.2) 08/02/23 08:40 AST 27 U/L (0-40) 08/02/23 08:40 ALT 40 U/L (0-41) 08/02/23 08:40 Alkaline Phosphatase 90 U/L (40-130) 08/02/23 08:40 Total Protein 7.5 g/dL (6.6-8.7) 08/02/23 08:40 Albumin 4.2 g/dL (3.5-5.2) 08/02/23 08:40 Globulin 3.3 g/dL (1.3-4.6) 08/02/23 08:40 Urine Color Yellow (Yellow) 08/02/23 10:15 Urine Appearance Clear (CLEAR) 08/02/23 10:15 Urine pH 6 (5-7) 08/02/23 10:15 Ur Specific [place] 1.020 (1.005-1.030) 08/02/23 10:15 Urine Protein Neg (Negative) 08/02/23 10:15 Urine Glucose (UA) Norm (Normal) 08/02/23 10:15 Urine Ketones Negative (Negative) 08/02/23 10:15 Urine Blood Neg (Negative) 08/02/23 10:15 Urine Nitrate Negative (Negative) 08/02/23 10:15 Urine Bilirubin Neg (Negative) 08/02/23 10:15 Urine Urobilinogen Neg mg/dL (Negative) 08/02/23 10:15 Ur Leukocyte Esterase Negative (Negative) 08/02/23 10:15 All radiology interpretation(s) finalized by discharge Discharge Plan Discharge Patient Disposition: Home Clinical Impression: Abdominal pain Qualifiers: Abdominal location: epigastric Qualified Code(s): R10.13 - Epigastric pain Condition: Stable Prescriptions: No Action sumatriptan succinate 25 mg tablet See Rx Instructions PO .COMPLEX Qty: 10 0RF Rx Instructions: take 1 tab at onset of headache; if no relief may repeat 1 tab after at least 2 hrs; max = 4 tabs/24 hr PO paroxetine HCl 20 mg tablet 20 mg PO DAILY Qty: 30 0RF pantoprazole 40 mg tablet,delayed release (DR/EC) 40 mg PO BID Qty: 60 0RF [place] 3 Fish Oil 684-1,200 mg Capsule,Delayed Release(Dr/Ec) 1 cap PO DAILY prazosin 1 mg capsule 1 mg PO BEDTIME amitriptyline 25 mg tablet 25 mg PO BEDTIME PRN (Reason: Sleep) Discharge Orders: Discharge ED (Routine); Ordered 08/02/23 Ordered By: Duane Larry Referrals: Orly Hart MD [Primary Care Provider] - 1 week Patient Instructions: Abdominal Pain (ED) Activity Restrictions/Additional Instructions: Your evaluation in ER was unremarkable as to the acute cause of your epigastric abdominal pain. It may be coming from your hiatal hernia. Please follow-up with Dr. Mckinley at your previously scheduled appointment. Coding Level of Care Code ED Client Development Consultant for Elizabeth Long
[2023-08-02 09:23] LABS: Alanine Aminotransferase 40 U/L (0-41); Albumin Level 4.2 g/dL (3.5-5.2); Alkaline Phosphatase 90 U/L (40-130); Aspartate Amino Transferase 27 U/L (0-40); Blood Urea Nitrogen 14 mg/dL (6-20); Calcium 9.1 mg/dL (8.5-10.5); Carbon Dioxide 23 mmol/L (22-29); Chloride 106 mmol/L (98-107); Creatinine Clr Calc Pharmacy 203.4869; Globulin 3.3 g/dL (1.3-4.6); Glomerular Filtration Rate 110.7 mL/min (90-130); Glucose 96 mg/dL (65-115); Osmolality Calculated 290 mOsm/kg (285-295); Sodium 140 mmol/L (136-145); Total Bilirubin 0.5 mg/dL (0.15-1.2); Total Protein 7.5 g/dL (6.6-8.7)
[2023-08-02 10:01] LABS: Anion Gap 14.8 (5-19); Potassium 3.8 mmol/L (3.5-5.1)
[2023-08-02 10:29] LABS: Add Urine Microscopic? NO; Charge for UA Resulting for Rev
[2023-08-02 10:38] LABS: Bilirubin Urine Neg (Negative); Blood Urine Neg (Negative); Glucose Urine UA Norm (Normal); Ketones Urine Negative (Negative); Leukocyte Esterase Urine Negative (Negative); Nitrate Urine Negative (Negative); Protein Urine Neg (Negative); Urine Appearance Clear (CLEAR); Urine Color Yellow (Yellow); Urobilinogen Urine Neg (Negative); pH Urine 6 (5-7)
== END 2023-08-02 12:35 | disposition home or self-care (01) ==
PROVIDERS: Emergency Provider Emergency Medicine; PCP Family Medicine
DX: R10.13 Epigastric pain (principal)
CPT/HCPCS: 80053; 81003; 85025; 99283

== ENCOUNTER 2023-08-07 21:59 | Emergency (ER) | payer BC, SELFPAY ==
[2023-08-07 22:04] VITALS: BP 156/84; PULSE 64; RESP 17; TEMP 36.7; O2SAT 99; BMI 41.2
[2023-08-07] MEDS: lidocaine 2% viscous 15 ML, aluminum-mag hydrox-simethicon 30 ML, sucralfate oral liq 1 GM PO (22:31)
[2023-08-07 22:32] LABS: Basophils % 0.3 %; Eosinophils # 0.1 10^3/uL (0.0-0.8); Eosinophils % 1.4 %; Hematocrit 41.1 % (37-53); Lymphocytes # 3.6 10^3/uL (0.8-4.8); Lymphocytes % 41.6 %; Mean Corpuscular HGB Conc 34.3 g/dL (30-55); Mean Corpuscular Hemoglobin 28.4 pg (27-33); Mean Corpuscular Volume 82.9 fl (82-101); Mean Platelet Volume 9.6 fL (7.4-10.4); Monocytes # 0.6 10^3/uL (0.2-0.9); Monocytes % 6.7 %; Neutrophils # 4.36 10^3/uL (1.8-7.7); Neutrophils % 49.8 %; Nucleated Red Blood Cells % 0 %; Platelet Count 217 10^3/cmm (157-399); Red Blood Count 4.96 10^6/uL (3.85-5.65); Red Cell Distribution Width 12.9 % (12.1-15.1); White Blood Count 8.76 10^3/uL (3.29-11.43)
[2023-08-07] MEDS: sodium chloride 0.9% 1,000 ML 999 ML IV (22:33)
[2023-08-07] MEDS: ondansetron 2 mg/ML SDV 2 mL 4 MG IVP (22:34)
[2023-08-07 22:38] VITALS: BP 152/99; PULSE 72; RESP 18; O2SAT 95
[2023-08-07 22:49] LABS: Alanine Aminotransferase 40 U/L (0-41); Albumin Level 4.3 g/dL (3.5-5.2); Alkaline Phosphatase 90 U/L (40-130); Anion Gap 15.9 (5-19); Aspartate Amino Transferase 25 U/L (0-40); Blood Urea Nitrogen 13 mg/dL (6-20); Calcium 9.7 mg/dL (8.5-10.5); Carbon Dioxide 23 mmol/L (22-29); Chloride 104 mmol/L (98-107); Creatinine Clr Calc Pharmacy 180.8772; Globulin 3.4 g/dL (1.3-4.6); Glomerular Filtration Rate 96.6 mL/min (90-130); Glucose 114 mg/dL (65-115); Lipase 40 U/L (13-60); Magnesium 2.3 mg/dL (1.7-2.3); Osmolality Calculated 289 mOsm/kg (285-295); Potassium 3.9 mmol/L (3.5-5.1); Sodium 139 mmol/L (136-145); Total Bilirubin 0.2 mg/dL (0.15-1.2); Total Protein 7.7 g/dL (6.6-8.7)
--- NOTE | 2023-08-07 22:56 | CTR_ITS ---
PROCEDURE INFORMATION: Exam: CT Abdomen And Pelvis With Contrast Exam date and time: 08/07/2023 11:07 PM Age: 33 years old Clinical indication: Nausea and vomiting; Abdominal pain; Prior surgery; Surgery date: 6+ months; Surgery type: Gb; Patient HX: Epigastric pain with n/v. Recently diagnosed with hiatal hernia. ; Additional info: Epigastric pain, n/v, known hiatal hernia, TECHNIQUE: Imaging protocol: Computed tomography of the abdomen and pelvis with contrast. Radiation optimization: All CT scans at this facility use at least one of these dose optimization techniques: automated exposure control; mA and/or kV adjustment per patient size (includes targeted exams where dose is matched to clinical indication); or iterative reconstruction. Contrast material: OMNI 350; Contrast volume: 100 ml; Contrast route: INTRAVENOUS (IV); COMPARISON: CT angio chest PE protcl [id number] 07/15/2021 10:23 PM RADIATION DOSE METRICS: Total DLP (mGy-cm): 1267.36 FINDINGS: Diaphragm: Small hiatal hernia. Liver: Hepatic steatosis. Gallbladder and bile ducts: Cholecystectomy. Pancreas: Normal. No ductal dilation. Spleen: Normal. No splenomegaly. Adrenal glands: Normal. No mass. Kidneys and ureters: Normal. No hydronephrosis. Stomach and bowel: Unremarkable. No obstruction. No mucosal thickening. Appendix: No evidence of appendicitis. Intraperitoneal space: Unremarkable. No free air. No significant fluid collection. Vasculature: Unremarkable. No abdominal aortic aneurysm. Lymph nodes: Unremarkable. No enlarged lymph nodes. Urinary bladder: Unremarkable as visualized. Reproductive: Unremarkable as visualized. Bones/joints: Right intertrochanteric 16 mm sclerotic benign bone island. Soft tissues: Small umbilical hernia containing omentum without bowel. CT/CT abdomen pelvis w con* [id number] IMPRESSION: 1. Negative for acute inflammatory process in the abdomen or pelvis. 2. Small hiatal hernia. 3. Hepatic steatosis. 4. Cholecystectomy. 5. Small umbilical hernia containing omentum without bowel. 6. Right intertrochanteric 16 mm sclerotic benign bone island.
--- NOTE | 2023-08-07 23:01 | W.ED.ABDPA2 ---
HPI - Abdominal Pain General: Chief Complaint: Abdominal Pain Stated Complaint: Abd pain Time Seen by Provider: 08/07/23 22:13 History of Present Illness: Presents to the ER with complaints of epigastric pain left upper quadrant pain. Patient was recently seen for similar symptoms after he had a EGD done by Dr. Mckinley, patient was diagnosed with hiatal hernia. 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 Patient states the pain is worse in the epigastric area and radiates to his left upper quadrant. Patient denies any fever chills, patient has not had a follow-up with Dr. Mckinley as of yet but there is talk of repairing his hiatal hernia. Review of Systems General: Reports: 10 or more systems reviewed and unremarkable except in HPI and below PFSH ED PFSH: Medical History History of peptic ulcer disease Obesity Migraines GERD (gastroesophageal reflux disease) PTSD (post-traumatic stress disorder) Anxiety Surgical History History of cholecystectomy Family History Grandfather Congestive heart failure (CHF) Grandmother Cancer Social History Smoking and tobacco/nicotine status: never used tobacco/nicotine Alcohol intake: never Substance/Drug Use: never Household members: significant other and children Marital status: Number of children: 3 service: Yes branch: [employer] Assignments: Deployed Countries/Dates of Deployments: [place] Current occupational status: employed 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/Faith: 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 Special chantel needs: No Agree to transfusion: Yes Physical Exam Const: COMMON NORMALS: no acute distress, average body habitus, patient oriented x3, no limitations, healthy appearing, alert and well nourished HENMT: COMMON NORMALS: normocephalic, atraumatic, hearing grossly normal bilaterally, external ears normal, Normal external nose present, moist oral mucous membranes and oropharynx normal HEAD & SCALP: normocephalic and atraumatic NOSE: Normal external nose present EXTERNAL EAR: Yes external ears normal Neck/C-Spine: COMMON NORMALS: no JVD Chest: COMMONS NORMALS: normal inspection of the chest and normal palpation of entire chest wall Resp: COMMON NORMALS: normal respiratory effort, No retractions, No use of accessory muscles and clear to auscultation bilaterally AUSCULTATION: clear to auscultation bilaterally Cardio: COMMON NORMALS: no JVD, regular rate, regular rhythm, S1 normal heart sound present, S2 normal heart sound present, No gallops present (Cardio), No clicks present (Cardio), No murmurs present (Cardio) and No rub (Cardio) RATE: regular rate RHYTHM: regular rhythm HEART SOUNDS: S1 normal heart sound present and S2 normal heart sound present GI: COMMON NORMALS: Normal to inspection, nondistended, normoactive bowel sounds present, Soft to palpation and No hepatosplenomegaly present; negative for non-tender (Clear to palpate epigastric region) PALPATION: Yes Soft to palpation and Yes No hepatosplenomegaly present Neuro: COMMON NORMALS: patient oriented x3 SENSORIUM/ORIENTATION: Yes alert Course Vital Signs: Vital signs: Vital Signs Temperature 98.1 F 08/07/23 22:04 Pulse Rate 72 08/07/23 22:38 Respiratory Rate 18 08/07/23 22:38 Blood Pressure 152/99 08/07/23 22:38 Pulse Oximetry 95 08/07/23 22:38 Oxygen Delivery Me thod Room Air 08/07/23 22:38 MDM - Abdominal Pain Medical Decision Making Lab work was obtained as well as a contrasted CT scan of the abdomen pelvis all of which was negative for acute pathology pertaining to his pain. Patient was given GI cocktail, Zofran 4 mg, 1 L normal saline, with no relief. These results was discussed with the patient. Patient be placed on a small dose of [place] to try to help with the pain. He should follow-up with his surgeon. Differential Diagnosis Likely abdominal pain; Unlikely acute appendicitis, calculus of kidney, constipation, diverticulitis, endometriosis, gastroenteritis, pancreatitis or small bowel obstruction Medical Records I reviewed the patient's medical records. Lab Data I reviewed the patient's lab results. 08/07/23 22:25 08/07/23 22:25 Labs/Radiology: Radiology Impressions Abdomen/Pelvis CT 08/07/23 22:56 IMPRESSION: 1. Negative for acute inflammatory process in the abdomen or pelvis. 2. Small hiatal hernia. 3. Hepatic steatosis. 4. Cholecystectomy. 5. Small umbilical hernia containing omentum without bowel. 6. Right intertrochanteric 16 mm sclerotic benign bone island. Laboratory Results WBC 8.76 10^3/uL (3.29-11.43) 08/07/23 22:25 RBC 4.96 10^6/uL (3.85-5.65) 08/07/23 22: Hgb 14.10 g/dL (11.27-16.99) 08/07/23 22:25 Hct 41.1 % (37-53) 08/07/23 22: MCV 82.9 fl (82-101) 08/07/23 22: MCH 28.4 pg (27-33) 08/07/23 22: MCHC 34.3 g/dL (30-55) 08/07/23 22: RDW 12.9 % (12.1-15.1) 08/07/23: Plt Count 217 10^3/cmm (157-399) 08/07/23 22: MPV 9.6 fL (7.4-10.4) 08/07/23 22: Neut % (Auto) 49.8 % 08/07/23 22: Lymph % (Auto) 41.6 % 08/07/23 22: [place] % (Auto) 6.7 % 08/07/23: Eos % (Auto) 1.4 % 08/07/23: Baso % (Auto) 0.3 % 08/07/23: Neut # (Auto) 4.36 10^3/uL (1.8-7.7) 08/07/23 22: Lymph # (Auto) 3.6 10^3/uL (0.8-4.8) 08/07/23: [place] # (Auto) 0.6 10^3/uL (0.2-0.9) 08/07/23 22: Eos # (Auto) 0.1 10^3/uL (0.0-0.8) 08/07/23 22: Baso # (Auto) 0.0 10^3/uL (0.0-0.1) 08/07/23 22:25 Nucleated RBC % (auto) 0 % 08/07/23 22:25 Nucleated RBCs # 0.0 /100WBC 08/07/23 22:25 Sodium 139 mmol/L (136-145) 08/07/23 22:25 Potassium 3.9 mmol/L (3.5-5.1) 08/07/23 22:25 Chloride 104 mmol/L (98-107) 08/07/23 22:25 Carbon Dioxide 23 mmol/L (22-29) 08/07/23 22:25 Anion Gap 15.9 (5-19) 08/07/23 22:25 BUN 13 mg/dL (6-20) 08/07/23 22:25 Creatinine 0.9 mg/dL (0.7-1.2) 08/07/23 22:25 GFR Calculation 96.6 mL/min (90-130) 08/07/23 22:25 Glucose 114 mg/dL (65-115) 08/07/23 22:25 Calculated Osmolality 289 mOsm/kg (285-295) 08/07/23 22:25 Calcium 9.7 mg/dL (8.5-10.5) 08/07/23 22:25 Magnesium 2.3 mg/dL (1.7-2.3) 08/07/23 22:25 Total Bilirubin 0.2 mg/dL (0.15-1.2) 08/07/23 22:25 AST 25 U/L (0-40) 08/07/23 22:25 ALT 40 U/L (0-41) 08/07/23 22:25 Alkaline Phosphatase 90 U/L (40-130) 08/07/23 22:25 Total Protein 7.7 g/dL (6.6-8.7) 08/07/23 22:25 Albumin 4.3 g/dL (3.5-5.2) 08/07/23 22:25 Globulin 3.4 g/dL (1.3-4.6) 08/07/23 22:25 Lipase 40 U/L (13-60) 08/07/23 22:25 All radiology interpretation(s) finalized by discharge Discharge Plan Discharge Patient Disposition: Home Clinical Impression: Abdominal pain Qualifiers: Abdominal location: epigastric Qualified Code(s): R10.13 - Epigastric pain Condition: Stable Prescriptions: New hydrocodone-acetaminophen 5-325 mg tablet 1 tab PO Q6H PRN (Reason: pain) Qty: 14 0RF No Action sumatriptan succinate 25 mg tablet See Rx Instructions PO .COMPLEX Qty: 10 0RF Rx Instructions: take 1 tab at onset of headache; if no relief may repeat 1 tab after at least 2 hrs; max = 4 tabs/24 hr PO paroxetine HCl 20 mg tablet 20 mg PO DAILY Qty: 30 0RF pantoprazole 40 mg tablet,delayed release (DR/EC) 40 mg PO BID Qty: 60 0RF [place] 3 Fish Oil 684-1,200 mg Capsule,Delayed Release(Dr/Ec) 1 cap PO DAILY prazosin 1 mg capsule 1 mg PO BEDTIME amitriptyline 25 mg tablet 25 mg PO BEDTIME PRN (Reason: Sleep) Discharge Orders: Discharge ED (Routine); Ordered 08/08/23 Ordered By: Duane Larry Referrals: Orly Hart MD [Primary Care Provider] - 1 week Patient Instructions: Abdominal Pain (ED) Activity Restrictions/Additional Instructions: Please keep your appointment to follow-up with Dr. Mckinley as your pain is more than likely coming from your hiatal hernia and may need surgical repair. You have been sent a small prescription of hydrocodone to the pharmacy to help you with your pain. If your pain becomes unbearable please feel free to return to the ER. Coding Level of Care Code ED Manager Of Case for Elizabeth Long
[2023-08-07] MEDS: iohexol 350 mg/mL 500 mL Btl (per mL) IV (23:05)
--- NOTE | 2023-08-08 00:39 | PC.NURSE ---
Pt sent home with 2tabs of [place] per Dr. Larry's orders.
[2023-08-08 00:49] VITALS: BP 142/81; PULSE 64; RESP 18; O2SAT 94
== END 2023-08-08 00:48 | disposition home or self-care (01) ==
PROVIDERS: Emergency Provider Emergency Medicine; PCP Family Medicine
DX: R10.13 Epigastric pain (principal)
CPT/HCPCS: 74177; 80053; 83690; 83735; 85025; 96374; 99285; J2405; J7030; J9999; Q9967

== ENCOUNTER → 2023-08-24 14:50 | Outpatient (BNVA) | payer BC, SELFPAY | PROVIDERS: PCP Family Medicine; Visit Provider Family Medicine | DX: E78.1 Pure hyperglyceridemia (principal) | CPT/HCPCS: 80061; 83721 ==

== ENCOUNTER 2023-09-14 08:10 | Day surgery (SDC) | payer BC, SELFPAY ==
[2023-09-14 08:26] VITALS: BP 120/85; PULSE 90; RESP 18; TEMP 36.1; O2SAT 97; BMI 41.2
[2023-09-14] MEDS: sodium chloride 0.9% 1,000 ML 30 ML IV (08:34)
--- NOTE | 2023-09-14 08:58 | ANES.PREANE2 ---
Pre-Anesthetic Assessment Height/Weight: Height 1.91 m Weight 149.685 kg Temp Pulse Resp BP Pulse Ox O2 Del Method 97.0 F L 90 18 120/85 97 Room Air 09/14/23 08:26 09/14/23 08:26 09/14/23 08:26 09/14/23 08:26 09/14/23 08:26 09/14/23 08:26 Operation Date: 09/14/23 09:30 Proposed Procedures p Colonoscopy 08462, G0105, K92.2(Not Applicable) - Lane Mckinley DO Familial anesthetic complications: none Was Beta Tam taken within 24 hours: N/A Was Clonidine taken within 24 hours: N/A Last intake: Intake Last Liquid Date 09/13/23 Last Liquid Time 22:00 Last Solid Date 09/12/23 Last Solid Time 21:30 Social No tobacco (quit chewing recently) Exam alert and oriented x 3 Airway Submandibular: within normal limits Cervical ROM: within normal limits Mallampati: Class II Dentition: full Pulmonary Sleep Apnea CV/HEM None reported None reported Hepatic None reported GI Gastroesophageal Reflux Disease, Hiatal Hernia and Peptic Ulcer Disease Metabolic Hyperlipidemia and Morbid Obesity Neuropsych Anxiety and Headache PTSD Anesthetic Plan ASA status: 3 Anesthesia: Anesthesia Evaluation, General and MAC Medications/Allergies Home Medications Medication Instructions Recorded Confirmed Last Taken Type omega-3 fatty acids-fish oil 684 1 cap PO DAILY 08/02/23 09/14/23 09/13/23 History mg-1,200 mg capsule,delayed release prazosin 1 mg capsule 1 mg PO BEDTIME #90 caps 08/17/23 09/14/23 09/13/23 Rx atomoxetine 40 mg capsule 40 mg PO DAILY #30 caps 08/24/23 09/08/23 09/13/23 Rx ondansetron 4 mg disintegrating 4 mg PO Q8H PRN nausea and 08/24/23 09/08/23 1 Week Ago Rx tablet vomiting #30 tabs ~09/07/23 atorvastatin 40 mg tablet 40 mg PO DAILY #90 tabs 08/29/23 09/14/23 09/13/23 Rx pantoprazole 40 mg tablet,delayed 40 mg PO BID 09/08/23 09/14/23 09/13/23 History release paroxetine HCl 20 mg tablet 20 mg PO DAILY 09/08/23 09/14/23 09/13/23 History sumatriptan succinate 25 mg tablet 25 mg PO .4TIMES PRN Migraine 09/08/23 09/14/23 1 Month Ago History Headache ~08/15/23 Allergies Allergy/AdvReac Type Severity Reaction Status Date / Time amoxicillin Allergy ALGY-Rash Verified 08/11/23 13:16 Current Medications Generic Name Dose Route Start Last Admin Trade Name Freq PRN Reason Stop Dose Admin Sodium Chloride 1,000 mls @ 30 mls/hr 09/14/23 08:15 09/14/23 08:34 Sodium Chloride 0.9% IV 09/15/23 08:14 30 mls/hr .Q24H MARCELLO Administration PFSH Anesthesia Medical History History of peptic ulcer disease Obesity Migraines GERD (gastroesophageal reflux disease) PTSD (post-traumatic stress disorder) Anxiety Surgical History History of cholecystectomy Family History Grandfather Congestive heart failure (CHF) Grandmother Cancer Social History Smoking and tobacco/nicotine status: never used tobacco/nicotine Alcohol intake: never Substance/Drug Use: never Household members: significant other and children Marital status: Number of children: 3 service: Yes branch: [employer] Assignments: Deployed Countries/Dates of Deployments: [place] Current occupational status: employed 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
--- NOTE | 2023-09-14 09:27 | P.HP_ITS ---
Providers/Chief Complaint Primary Care Provider: Orly Hart MD Chief Complaint: K92.2 History of Present Illness Reji Amezquita is a 33 year old male Review of Systems General: Reports: 10 or more systems reviewed and unremarkable except in HPI and below Medications/Allergies Home Medications Medication Instructions Recorded Confirmed Last Taken Type omega-3 fatty acids-fish oil 684 1 cap PO DAILY 08/02/23 09/14/23 09/13/23 History mg-1,200 mg capsule,delayed release prazosin 1 mg capsule 1 mg PO BEDTIME #90 caps 08/17/23 09/14/23 09/13/23 Rx atomoxetine 40 mg capsule 40 mg PO DAILY #30 caps 08/24/23 09/08/23 09/13/23 Rx ondansetron 4 mg disintegrating 4 mg PO Q8H PRN nausea and 08/24/23 09/08/23 1 Week Ago Rx tablet vomiting #30 tabs ~09/07/23 atorvastatin 40 mg tablet 40 mg PO DAILY #90 tabs 08/29/23 09/14/23 09/13/23 Rx pantoprazole 40 mg tablet,delayed 40 mg PO BID 09/08/23 09/14/23 09/13/23 History release paroxetine HCl 20 mg tablet 20 mg PO DAILY 09/08/23 09/14/23 09/13/23 History sumatriptan succinate 25 mg tablet 25 mg PO .4TIMES PRN Migraine 09/08/23 09/14/23 1 Month Ago History Headache ~08/15/23 Allergies Allergy/AdvReac Type Severity Reaction Status Date / Time amoxicillin Allergy ALGY-Rash Verified 08/11/23 13:16 PFSH Acute PFSH: Medical History History of peptic ulcer disease Obesity Migraines GERD (gastroesophageal reflux disease) PTSD (post-traumatic stress disorder) Anxiety Surgical History History of cholecystectomy Family History Grandfather Congestive heart failure (CHF) Grandmother Cancer Social History Smoking and tobacco/nicotine status: never used tobacco/nicotine Alcohol intake: never Substance/Drug Use: never Household members: significant other and children Marital status: Number of children: 3 service: Yes branch: [employer] Assignments: Deployed Countries/Dates of Deployments: [place] Current occupational status: employed 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
[2023-09-14 09:47] VITALS: BP 114/67; PULSE 84; RESP 18; TEMP 36.3; O2SAT 90
--- NOTE | 2023-09-14 09:52 | ANE.PACU2 ---
Inpatient post-anesthesia follow up: Airway intact: Yes Vital signs: Temperature 97.0 F Pulse Rate 90 Respiratory Rate 18 Blood Pressure 120/85 Pulse Oximetry 97 Oxygen Delivery Me thod Room Air Oxygen Flow Rate Fraction of Inspir ed Oxygen Hydration adequate: Yes Nausea and vomiting: No Pain level: 1 Mental status: Baseline
[2023-09-14 10:00] VITALS: BP 111/75; PULSE 81; RESP 16; O2SAT 96
== END 2023-09-14 10:17 | disposition home or self-care (01) ==
PROVIDERS: PCP Family Medicine; Visit Provider Surgery
PROC: 0DJD8ZZ Inspection of Lower Intestinal Tract, Via Natural or Artificial Opening Endoscopic (ICD-10-PCS; CPT 45378; principal; 2023-09-14 09:30)
DX: K57.30 Diverticulosis of large intestine without perforation or abscess without bleeding (principal); K64.8 Other hemorrhoids; Z87.11 Personal history of peptic ulcer disease; E66.9 Obesity, unspecified; Z68.41 Body mass index [BMI] 40.0-44.9, adult; R11.2 Nausea with vomiting, unspecified; Z87.891 Personal history of nicotine dependence; G47.30 Sleep apnea, unspecified; E78.5 Hyperlipidemia, unspecified; E66.01 Morbid (severe) obesity due to excess calories
CPT/HCPCS: 45378; J2704; J7030

== ENCOUNTER → 2023-11-09 14:34 | Outpatient (BNVA) | payer BC, SELFPAY | PROVIDERS: PCP Family Medicine; Visit Provider Clinical Nurse Specialist Adult Health | DX: J06.9 Acute upper respiratory infection, unspecified (principal) | CPT/HCPCS: 87400; 87426 ==

== ENCOUNTER 2023-12-20 16:56 | Inpatient (IN) | payer BC, SELFPAY ==
--- OUTSIDE RECORDS SUMMARY | 2023-12-09 15:33 | XMS_ITS | Continuity of Care Document ---
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 Location of pain is upper back and middle back.There is no radiation of pain. The patient describes the pain as an ache. 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 Pain seems to be persistent no matter what he does. Difficulty sleeping Patient also presents after his has concerns about difficulty with waking up in the middle of the night gasping for breath. Apparently he often stops breathing in the middle of the night, snores, and sleeps with his mouth open. He says 90% of the time he actually throws up when he wakes up because he can't catch his breath. Functional Status Date Functional Assessmen t No Information Instructions Date Instruction Additional Infor mation No Information Assessments Type Assessment Date No Information Patient Care Teams Name Effective Dates (start - stop) Status Members No Information
[2023-12-20] VITALS (20 sets, daily range): BP systolic 119–151; BP diastolic 72–107; PULSE 66–86; RESP 14–18; TEMP 36.4–37.1; O2SAT 91–99
--- OUTSIDE RECORDS SUMMARY | 2023-12-20 09:36 | XMS_ITS | Continuity of Care Document ---
Author Name Unknown Organization [facility] Address [address] [place] [address] Phone Care Team Providers Care Rad Technologist Name Role Phone Rosita Caalbrese APRN Unavailable Unavailable Allergies, Adverse Reactions, Alerts [...] Copied on Encounter OFFICE/OUTPAT IENT VISIT EST [facility], [address], [place], [id number], [place] tel:[phone] [facility] HPI History (chief complaint) Chest pain, unspecified typeDilated aortic rootPTSD (post-trauma tic stress disorder) 2 Guanakito Becker. [address], [place], [id number], [place]. tel:[phone] Referring Provider: Rosita Calabrese APRN, [address], [place], [address]. tel:[phone] [facility], [address] [facility], [place], [id number], [place] tel:[phone] [facility] No Information 2 Guanakito Becker. [address], [place], [place], [address], [place]. tel:[phone] [facility], [address], [place], [place], [address], [place] tel:[phone] [place] [address] No Information 1 Ayana Florez. [address], [address], [place], [id number], [place]. tel:[phone] Referring Provider: Herman HERNANDEZ, [address], [place], [address]. tel:[phone] [facility], [address], [place], [place], [address], [place] tel:[phone] [place] [address] No Information 1 Fredi Green. [address], [place], [place], [address], [place]. tel:[phone] Referring Provider: Rosita Calabrese APRN, [address], [place], [address]. tel:[phone] [facility], [address], [place], [place], [address], [place] tel:[phone] [facility] No Information 1 Evan Steele. [address], [facility] [address], [place], [place], [address], [place]. tel:[phone] Referring Provider: Johan French MD, [address], [place], [address]. tel:[phone] OFFICE/OUTPAT IENT VISIT NEW [facility], [address], [place], [place], [address], [place] tel:[phone] [facility] Chest Pain (chief complaint) Chest pain, unspecified typeCardiome galyDilated aortic rootPTSD (post-trauma tic stress disorder) 1 Balbir Beasley. [address], [address], [place], [place], [address], [place]. tel:[phone] Referring Provider: Johan French MD, [address], [place], [address]. tel:[phone] CONSULT DETAILED / LOW COMP [facility], [address], [place], [place], [id number], [place] tel:[phone] [facility] Tinnitus (chief complaint) Tinnitus of left ear 9 Osiel Hercules. [address], [place], [place], [address], [place]. tel:[phone] Referring Provider: [address] [place], [address]. tel:[phone] [facility], [address], [place], [place], [address], [place] tel:[phone] [facility] Left Ear Ringing (chief complaint) Tinnitus of left ear 9 Reemakamryn Marley Ary. [address], [address], [place], [place], [address], [place]. tel:[phone] Referring Provider: [address] [place], [address]. tel:[phone] OFFICE/OUTPAT IENT VISIT EST [facility], [facility] [place], [place], [address], [place] tel:[phone] [facility] follow up (chief complaint) DizzinessNec k painLower thoracic back painChronic bilateral low back pain without sciaticaOthe r chronic pain 8 Felicia Pink. [address], [address], [place], [place], [address], [place]. tel:[phone] CONSULT COMP / MOD COMP [facility], [address] [facility] [place], [address], [place] tel:[phone] [facility] Consult (chief complaint) Back pain with radiculopath yAcute right-sided thoracic back painNeck painParesthe siaFatigue, unspecified type 8 Felicia Pink. [address], [address], [place], [place], [address], [place]. tel:[phone] Referring Provider: [address] [place], [address]. tel:[phone] OFFICE/OUTPAT IENT VISIT NEW [facility], [address], [place], [place], [address], [place] tel:[phone] [facility] No Information 7 Fredi Green. [address] [place], [place], [address], [place]. tel:[phone] Referring Provider: [address] [place], [address]. tel:[phone] [facility], [address], [place], [place], [address], [place] tel:[phone] [place] [address] No Information 7 Fredi Green. [facility] [place], [place], [address], [place]. tel:[phone] Referring Provider: Norma Rai MD, [facility] [place], [address]. tel:[phone] [facility], [address], [place], [place], [address], [place] tel:[phone] [facility] No Information 7 Ivet Boyer. [address], [place], [place], [address], [place]. tel:[phone] Referring Provider: Zacarias Flores MD, [address], [place], [address]. tel:[phone] [facility], [facility] [place], [place], [address], [place] tel:[phone] [facility] No Information 7 Estrada Madden. [address], [address], [place], [place], [address], [place]. tel:[phone] [facility], [facility] [place], [place], [address], [place] tel:[phone] [facility] No Information Dec-0 7 Estrada Madden. [address], [address], [place], [place], [address], [place]. tel:[phone] Referring Provider: Maryanne Plaza MD, [address], [place], [address]. tel:[phone] INPATIENT CONSULTATION Lvl 4 [facility], [address], [place], [place], [address], [place] tel:[phone] [facility] No Information Dec-0 7 Estrada Madden. [address], [address], [place], [place], [address], [place]. tel:[phone] Referring Provider: Josué Arroyo, [address] [place], [address]. tel:[phone] [facility], [address], [place], [place], [address], [place] tel:[phone] [facility] No Information 3 7 Ayana Florez. [address], [address], [place], [place], [address], [place]. tel:[phone] Referring Provider: [address] [place], [address]. tel:[phone] OFFICE/OUTPAT IENT VISIT EST [facility], [address] [place], [place], [address], [place] tel:[phone] [facility] Follow Up of [facility] (chief complaint) Follow Up of Migraines (chief complaint) Migraine with aura and with status migrainosus, not intractableD ilated aortic root May- 7 Ten Pabon. [address], [place], [place], [address], [place]. tel:[phone] OFFICE/OUTPAT IENT VISIT EST [facility], [address] [place], [address], [place] tel:[phone] [facility] sunburn (chief complaint) Sunburn of second degree 6 Ten Pabon. [address], [place], [place], [address], [place]. tel:[phone] [facility], [address], [address], [place] tel:[phone] [facility] Nicotine dependence, cigarettes, uncomplicate d 6 Ten Pabon. [address], [place], [place], [address], [place]. tel:[phone] [facility], [address], [address], [place] tel:[phone] [facility] Sleep apnea in adult 6 Ten Pabon. [address], [place], [place], [address], [place]. tel:[phone] OFFICE/OUTPAT IENT VISIT NEW [facility], [address], [address], [place] tel:[phone] [facility] back pain (chief complaint) Difficulty sleeping (chief complaint) Sleep apnea in adultScheuer sevilla diseaseCardi omegalyObesi ty (BMI 30-39.9) 6 Ten Pabon. [address], [place], [place], [address], [place]. tel:[phone] Family History Family Member Type Diagnosis Age At Onset Father Problem (finding) Heart Condition Mother Problem (finding) Payers Payer name Insurance type Covered democrat ID Authoriza tialessandra(s) [employer] CI [id number] Social History Type Description Quantity Date Captured [...] started the day prior. He went to [place] emergency department at that time but was [...] as cardiology.Patient states he was told at [facility] in the past that he had [...] Of Treatment Date Type Action Status Goal Colonoscopy. Due on 022 due Goal FIT. Due on due Goal Hepatitis C screening. Due o n due Goal Tdap. Due on due Goal FIT-DNA. Due on due Goal Unhealthy drug u se screening. Due on due Goal Sigmoidoscopy. Due on due Goal CT-Colonography. Due on due Goal Td vaccine. Due on due Goal Depression screening. Due on due Goal Influenza vaccine. Due on Oc due Goal Tobacco Cessatio n Counseling. Due on due Goal FIT. Due on due Goal Depression screening. Due on due Goal Tobacco Cessatio n Counseling. Due on due Goal Hepatitis C screening. Due o n due Goal Influenza vaccine. Due on Oc due Goal FIT-DNA. Due on due Goal Unhealthy drug u se screening. Due on due Goal Tdap. Due on due Goal Sigmoidoscopy. Due on due Goal CT-Colonography. Due on due Goal Td vaccine. Due on due Goal Colonoscopy. Due on 022 due Goal Td vaccine. Due on due Goal Tdap. Due on due Goal Tobacco Cessatio n Counseling. Due on due Goal Depression screening. Due on due Goal Influenza vaccine. Due on Oc due Goal Influenza vaccine. Due on Ma due Goal Tobacco Cessatio n Counseling. Due on due Goal Tdap. Due on due Goal Td vaccine. Due on due Goal Depression screening. Due on due Goal Tobacco Cessatio n Counseling. Due on due Goal Tdap. Due on due Goal Td vaccine. Due on due Goal Depression screening. Due on due Goal Influenza vaccine. Due on due Goal Depression screening. Due on due Goal Influenza vaccine. Due on due Goal Tobacco Cessatio n Counseling. Due on due Goal Td vaccine. Due on due Goal Tdap. Due on due Goal Depression screening. Due on due Goal Influenza vaccine. Due on due Goal Tdap. Due on due Goal Tobacco Cessatio n Counseling. Due on due Goal Td vaccine. Due on 18 due Goal Td vaccine. Due on 17 due Goal Tobacco Cessatio n Counseling. Due on due Goal Tdap. Due on due Goal Influenza vaccine. Due on due Goal Tobacco Cessatio n Counseling. Due on due Goal Depression screening. Due on due Goal Tdap. Due on due Goal Td vaccine. Due on 16 due Goal Influenza vaccine. Due on due Goal Tobacco Cessatio n Counseling. Due on due Goal Tdap. Due on due Goal Depression screening. Due on due Goal Td vaccine. Due on 16 due Goal Influenza vaccine. Due on due Referral Ordered: Cesar Conde MD -Neurology (related to Back pain with radiculopathy) ordered Referral Referred To: Cesar Conde MD [address] [facility] [address] [place], [phone] Ordered: Referrals: Neurology. Cesar Conde MD. Consult ordered Referral Ordered: MRI BRAIN W/O & W/DYE ordered Referral Referred To: Home Sleep Study Ordered: Referrals: Home Sleep Study. Diagnostic testing ordered Referral Ordered: DXA BONE DENSITY AXIAL ordered Referral Ordered: SPLIT NIGHT SLEEP STUDY ordered Future Order: Lab Order Occult B lood, Stool ([id number]), Ordered on: Ordered History Of Present Illness Encounter Date Complaint History Of Prese nt Illness HPI History This is a 31-yea r-old male who presents today for ER follow-up. He presented to the emergency department on December 28, 2020 with complaints of chest pain which started the day prior. He went to [place] emergency department at that time but was [...] cardiology. Patient states he was told at [facility] in the past that he had [...] denies any visual changes. Follow Up of 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 He is requesting [...]
[2023-12-20] MEDS: sodium chloride 0.9% 1,000 ML 30 ML IV (10:16)
--- NOTE | 2023-12-20 10:22 | W.PM.OPSUD ---
Surgery/Procedure H&P Update DATE OF PROCEDURE: December 20, 2023 DATE H&P PERFORMED: 12/08/23 H&P UPDATE INFORMATION: I have reviewed H&P completed within last 30 days, I have examined patient prior to procedure and No changes to prior documentation PLANNED PROCEDURE: Operation Date: 12/20/23 11:35 Proposed Procedures p Laparoscopic Hiatal Hernia Repair [id number], 93627, K44.9 88464(Not Applicable) - DO denver Farooq Laparoscopic Wander Fundoplication(Not Applicable) - DO denver Farooq EGD(Not Applicable) - Lane Mckinley DO
[2023-12-20] MEDS: vancomycin 2,000 MG/400 ML PIGGYBACK 200 MG IV (11:20)
--- NOTE | 2023-12-20 11:29 | ANES.PREANE2 ---
Pre-Anesthetic Assessment Height/Weight: Height 6 ft 3 in Weight 330 lb Temp Pulse Resp BP Pulse Ox O2 Del Method 97.5 F L 66 18 151/107 99 Room Air 12/20/23 10:02 12/20/23 10:02 12/20/23 10:02 12/20/23 10:02 12/20/23 10:02 12/20/23 10:02 Operation Date: 12/20/23 11:35 Proposed Procedures p Laparoscopic Hiatal Hernia Repair [id number], 42741, K44.9 07782(Not Applicable) - DO denver Farooq Laparoscopic Wander Fundoplication(Not Applicable) - DO denver Farooq EGD(Not Applicable) - Lane Mckinley DO Last intake: Intake Last Liquid Date 12/19/23 Last Liquid Time 17:30 Last Solid Date 12/19/23 Last Solid Time 17:30 Social No alcohol and No tobacco Exam alert, oriented x 3, clear to auscultation bilaterally and regular rate & rhythm Airway Submandibular: within normal limits Cervical ROM: within normal limits Mallampati: Class II Comments: Comments: large dutton Anesthetic Plan ASA status: 3 Other: No prior issues with anesthesia N.p.o. since 5 PM yesterday Patient has a significant hiatal hernia causing him to experience emesis almost nightly including hemataemesis at times Patient denies any cardiac or pulmonary issues BMI 41 METs greater than 4 Plan for GETA Medications/Allergies Home Medications Medication Instructions Recorded Confirmed Last Taken Type atorvastatin 40 mg tablet 40 mg PO DAILY 12/16/23 12/20/23 12/19/23 History pantoprazole 40 mg tablet,delayed 40 mg PO BID 12/16/23 12/20/23 12/19/23 History release Allergies Allergy/AdvReac Type Severity Reaction Status Date / Time amoxicillin Allergy Intermediate RASH Verified 12/08/23 08:21 Current Medications Generic Name Dose Route Start Last Admin Trade Name Freq PRN Reason Stop Dose Admin Sodium Chloride 1,000 mls @ 30 mls/hr 12/20/23 09:45 12/20/23 10:16 Sodium Chloride 0.9% IV 12/21/23 09:44 30 mls/hr .Q24H MARCELLO Administration Vancomycin HCl 2,000 mg in 400 mls @ 200 mls/hr 12/20/23 10:00 09/03/24 11:20 Vancocin IV 12/20/23 11:59 200 mls/hr PRESS OFFICER ONE Administration [facility] Anesthesia Medical History History of peptic ulcer disease Obesity Migraines GERD (gastroesophageal reflux disease) PTSD (post-traumatic stress disorder) Anxiety Surgical History History of cholecystectomy Family History Grandfather Congestive heart failure (CHF) Grandmother Cancer Social History Smoking and tobacco/nicotine status: never used tobacco/nicotine (has quit chewing) Alcohol intake: never Substance/Drug Use: never Household members: significant other and children Marital status: Number of children: 3 service: Yes branch: [employer] Assignments: Deployed Countries/Dates of Deployments: [place] Current occupational status: employed 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
[2023-12-20] MEDS: tranexamic acid 1,000 mg/10mL SDV 1000 MG IV (15:24)
[2023-12-20] MEDS: lidocaine-epi 2% PF 1:200,000 20 mL SDV XX (15:45)
--- NOTE | 2023-12-20 15:56 | PM.OP ---
Operative Report Date of procedure: December 20, 2023 Pre-op diagnosis: Hiatal hernia GERD Post-op diagnosis: same Procedure done: Laparoscopic hiatal hernia repair with Wander fundoplication ([id number]) EGD Implants: Ethibond permanent sutures Specimens removed/disposition: None Surgeon: Lane Mckinley DO Anesthesia: General and Local Estimated blood loss (mL): 20 Complications: None apparent Brief History: This is a very pleasant 33-year-old gentleman who came to my office with severe GERD. Symptoms persisted despite maximal PPI therapy. DeMeester score was found to be elevated. EGD showed hiatal hernia. Laparoscopic hiatal hernia repair with Wander fundoplication was indicated. The risks and benefits were explained and documented. Procedure: Patient was wheeled in the OR placed on the OR table in the supine position. General endotracheal intubation was achieved by the part of anesthesia. He was then placed in the lithotomy position. The abdomen was inspected prepped and draped in usual sterile fashion. A timeout was performed. All present were in agreement. Patient then was placed into extreme reverse Trendelenburg. A Veress needle was used to create 15 mm of intra-abdominal insufflation. A 12 mm trocar was placed subcostally in the left mid axillary line. 5 mm trocars were placed into the right subcostal midaxillary line, subxiphoid position, and left mid axillary line subcostally. Two 5 mm trocars were placed supraumbilically. The gastropathic ligament was taken down with the laparoscopic ligature. The short gastrics were then taken down with laparoscopic ligature stain at least 1 cm from the stomach. This was carried all the way up to the diaphragm. The hernia sac was dissected free both bluntly and sharply. A half-inch [place] was placed around the esophagus and the esophagus pulled down into the abdomen. Attachments of the esophagus in the mediastinum were broken sharply and bluntly until there was 5 cm of esophagus into the abdomen. The hiatal hernia repair was then performed. Four 0 Ethibond sutures were placed in interrupted fashion into the posterior and anterior components of the right flo of the diaphragm, 1.5 cm apart, loosely approximating and repairing the hiatal hernia. A shoeshine maneuver was then performed so that the stomach was freed completely posteriorly. 0 Ethibond suture was then placed into the anterior portion of the stomach near the greater curvature, then into the esophagus, and then into the posterior aspect of the stomach and then a U-stitch was performed back into the posterior aspect of the stomach over to the anterior portion of the stomach near the greater curvature. This was tightened down ensuring that the wrap was loose. Another suture was placed just inferior to this again approximating the stomach loosely. An additional suture was placed from the stomach to the right crura of the diaphragm tacking it in place. An EGD was then performed. There was extensive fundic gland polyp formation throughout the stomach from hide PPI use. The endoscope passed easily into the stomach and the posterior wrap was identified to be intact. No further pathology was identified. The 12 mm port site was then closed with an 0 Vicryl and Jarod-Sendy in a [id number] fashion. Skin was closed with 4-0 Monocryl and Dermabond. Patient tolerated procedure well.
[2023-12-20] MEDS: fentaNYL 50 mcg/mL INJ 2mL IVP (16:40)
[2023-12-20] MEDS: HYDROmorphone 1 mg/mL INJ 1 mL IVP ×3 (17:35→21:47)
[2023-12-20] MEDS: dextrose 5%-sod chloride 0.45% 1,000 ML 100 ML IV (17:36)
[2023-12-20] MEDS: pantoprazole 40 mg SDV IVP (17:36)
--- NOTE | 2023-12-20 17:42 | ANE.PACU2 ---
Inpatient post-anesthesia follow up: Airway intact: Yes Vital signs: Temperature 97.9 F Pulse Rate 62 Respiratory Rate 18 Blood Pressure 138/88 Pulse Oximetry 97 Oxygen Delivery Me thod Nasal Cannula Oxygen Flow Rate 1 Fraction of Inspir ed Oxygen Hydration adequate: Yes Nausea and vomiting: No Pain level: 2 Mental status: Baseline
[2023-12-20] MEDS: clindamycin 600 MG/50 ML PREMIX 100 MG IV (19:31)
[2023-12-20] MEDS: benzonatate 100 mg Capsule PO (19:32)
[2023-12-21] VITALS (16 sets, daily range): BP systolic 135–151; BP diastolic 71–94; PULSE 62–83; RESP 16–20; TEMP 36.4–36.8; O2SAT 94–97
[2023-12-21] MEDS: HYDROmorphone 1 mg/mL INJ 1 mL IVP ×9 (00:28→20:14)
[2023-12-21] MEDS: dextrose 5%-sod chloride 0.45% 1,000 ML 100 ML IV ×3 (02:38→23:01)
[2023-12-21] MEDS: pantoprazole 40 mg SDV IVP ×2 (04:32→18:17)
[2023-12-21] MEDS: clindamycin 600 MG/50 ML PREMIX 100 MG IV ×3 (04:32→20:13)
[2023-12-21] MEDS: heparin 5,000 unit/mL INJ 1 mL 5000 UNIT SUBCUT ×2 (04:32→18:16)
[2023-12-21 06:12] LABS: Basophils % 0.1 %; Eosinophils % 0.1 %; Hematocrit 38.9 % (37-53); Lymphocytes # 2.1 10^3/uL (0.8-4.8); Lymphocytes % 14.9 %; Mean Corpuscular HGB Conc 32.9 g/dL (30-55); Mean Corpuscular Hemoglobin 27.8 pg (27-33); Mean Corpuscular Volume 84.4 fl (82-101); Mean Platelet Volume 9.5 fL (7.4-10.4); Monocytes % 6.9 %; Neutrophils # 10.94 10^3/uL (1.8-7.7); Neutrophils % 77.6 %; Nucleated Red Blood Cells % 0 %; Platelet Count 209 10^3/cmm (157-399); Red Blood Count 4.61 10^6/uL (3.85-5.65); White Blood Count 14.08 10^3/uL (3.29-11.43)
--- NOTE | 2023-12-21 06:33 | PC.NURSE ---
Patient has been in excruciating pain all night. He has Dilaudid 1mg q2h for pain. Pt states it only works for 10 minutes and then he is back to rating his pain a 10/10. Dr. Mckinley notified and ordered 30mg of Toradol q6h.
[2023-12-21] MEDS: ketorolac 30 mg/mL INJ IVP ×3 (06:40→20:14)
[2023-12-21 07:24] LABS: Anion Gap 19.3 (5-19); Blood Urea Nitrogen 9 mg/dL (6-20); Calcium 8.5 mg/dL (8.5-10.5); Carbon Dioxide 19 mmol/L (22-29); Chloride 102 mmol/L (98-107); Creatinine Clr Calc Pharmacy 232.5564; Glomerular Filtration Rate 129.1 mL/min (90-130); Glucose 151 mg/dL (65-115); Magnesium 2.1 mg/dL (1.7-2.3); Osmolality Calculated 284 mOsm/kg (285-295); Potassium 4.3 mmol/L (3.5-5.1); Sodium 136 mmol/L (136-145)
[2023-12-21] MEDS: atorvastatin 40 mg Tablet PO (08:19)
--- NOTE | 2023-12-21 08:54 | PC.CHAP ---
Pastoral Care Encounter/Spiritual Assessment Type of Contact [] Declined early morning visit [] Patient/Family/Request visit [] Outpatient visit [] Follow-up visit [] Physician referral [] Code/Alert [] Routine visit [] Staff referral [] Actively dying [] Patient sleeping [] Family support [] [] Out of room [] Palliative care [] [x] Receiving care in room [] Pre-surgical visit [] Trauma [] Long length of stay [] ICU visit [] Other: Relational/Emotional Strength [] Patient feels connected with others/family/visitors/staff [] Distress [] Loneliness/isolation [] Abandonment Spirituality of Patient [] Person of Chantel [] Attends Shinto of their Chantel [] Believes in Prayer [] Reads Bible or Samaritan materials [] There are Spiritual issues to be addressed Regional Geodetic Advisor Interventions [] Prayer [] Active listening [] Non-anxious presence [] Spiritual/emotional support [] Crisis/trauma care [] Spiritual counseling [] Bereavement support [] Provided bereavement packet [] Provided Bible/devotional materials [] Provided toy/stuffed animal, coloring book to patient or family member [] Provided Communion [] Anointing/Chambers [] Salvation [] Completed spiritual assessment [] Other: Impact on Illness or Injury [] Angry [] Fearful [] Anxious [] Often cries [] Exhaustion [] Unable to work [] Unable to attend synagogue [] Unable to walk/stand [] Unable to read [] Unable to drive [] Unable to eat/drink [] Unable to sleep [] Unable to be with family [] Patient intubated [] Other: Summary Time spent with patient
--- NOTE | 2023-12-21 13:08 | PC.NURSE ---
Patient continues to have increased pain after Toradol and Dilaudid have been administered as ordered with no relief. I called and spoke with Dr. Mckinley and informed him of this information and he stated that he feels as though patient had some difficulty breathing coming out of surgery on 12/19 and he believes he is having increased anxiety around his current condition. He provided an order for 1 mg Ativan IVP once now and states he will be upstairs to see the patient within the next 1-2 hours. VBRO per protocol. I informed Gianna Bai LPN patient's primary nurse of this information.
[2023-12-21] MEDS: LORazepam 2 mg/mL INJ 1 mL 1 MG IVP ×2 (13:21→21:27)
--- NOTE | 2023-12-21 15:47 | P.PN_ITS ---
Subjective 2 Subjective: Patient seen and examined. He has had difficult to control pain and some anxiety. Tolerating clear liquid diet Vitals/I&O/Wt Last Vital Signs Temp 97.9 F 12/21/23 11:51 Pulse 62 12/21/23 11:51 Resp 18 12/21/23 11:51 BP 138/88 12/21/23 11:51 Pulse Ox 97 12/21/23 11:51 O2 Del Method Nasal Cannula 12/21/23 11:51 O2 Flow Rate 1 12/21/23 04:20 12/21/23 12/21/23 12/21/23 06:59 14:59 22:59 Intake Total 2103.333 / 4253.333 1876.667 / 1876.667 Output Total 750 / 2350 1100 / 1100 Balance 1353.333 / 1903.333 776.667 / 776.667 Weight last 48 hrs Weight 330 lb Weight 330 lb Physical Exam 2 Narrative: General: No acute distress, awake alert and oriented x 3 Abdomen: Soft, nondistended, appropriately tender Incisions clean dry and intact Urinary Catheter Management: [place]: Cath Placed During This Visit: yes Reason for Continuing Indwelling Catheter: Other Urinary Catheter Date of Insertion: 12/20/23 Urinary Catheter Time of Insertion: 12:00 Data 12/21/23 06:01 12/21/23 06:01 A&P Assessment and plan (1) History of repair of hiatal hernia: Plan Postop day #1 status post laparoscopic hiatal hernia repair with Wander fundoplication Pain controlled Ativan 1 mg every 8 hours as needed anxiety Clear liquid diet Attestations 2 Medical Necessity Statement*: Patient requires at least 1 more night in the hospital for pain control and diet advancement after laparoscopic hiatal hernia repair with Wander fundoplication Coding Level of Care Code Acute Code for Chg Fwd Diagnoses History of repair of hiatal hernia Z98.890; Z87.19
[2023-12-22] VITALS (15 sets, daily range): BP systolic 110–147; BP diastolic 70–88; PULSE 77–99; RESP 16–24; TEMP 36.4–37.8; O2SAT 94–96
[2023-12-22] MEDS: HYDROmorphone 1 mg/mL INJ 1 mL IVP ×7 (01:38→21:03)
[2023-12-22] MEDS: clindamycin 600 MG/50 ML PREMIX 100 MG IV ×3 (03:41→21:02)
[2023-12-22 03:49] LABS: Basophils % 0.1 %; Eosinophils # 0.1 10^3/uL (0.0-0.8); Lymphocytes # 2.3 10^3/uL (0.8-4.8); Mean Corpuscular HGB Conc 32.3 g/dL (30-55); Mean Corpuscular Hemoglobin 27.6 pg (27-33); Mean Corpuscular Volume 85.4 fl (82-101); Mean Platelet Volume 9.8 fL (7.4-10.4); Monocytes # 0.8 10^3/uL (0.2-0.9); Monocytes % 8.4 %; Neutrophils % 64.1 %; Nucleated Red Blood Cells % 0 %; Platelet Count 165 10^3/cmm (157-399); Red Cell Distribution Width 13.2 % (12.1-15.1); White Blood Count 8.91 10^3/uL (3.29-11.43)
[2023-12-22 04:08] LABS: Anion Gap 13.8 (5-19); Blood Urea Nitrogen 8 mg/dL (6-20); Carbon Dioxide 25 mmol/L (22-29); Chloride 105 mmol/L (98-107); Creatinine Clr Calc Pharmacy 232.5564; Glomerular Filtration Rate 129.1 mL/min (90-130); Glucose 120 mg/dL (65-115); Magnesium 2.1 mg/dL (1.7-2.3); Osmolality Calculated 290 mOsm/kg (285-295); Potassium 3.8 mmol/L (3.5-5.1); Sodium 140 mmol/L (136-145)
[2023-12-22] MEDS: heparin 5,000 unit/mL INJ 1 mL 5000 UNIT SUBCUT ×2 (06:12→16:17)
[2023-12-22] MEDS: HYDROcodone-acetaminophen 7.5-325 mg Tablet 1 TAB PO (06:12)
[2023-12-22] MEDS: pantoprazole 40 mg SDV IVP ×2 (06:12→16:18)
[2023-12-22] MEDS: dextrose 5%-sod chloride 0.45% 1,000 ML 100 ML IV ×2 (08:35→19:39)
--- NOTE | 2023-12-22 08:39 | CT_ITS ---
WS: [id number] CT ABDOMEN AND PELVIS WITH CONTRAST HISTORY: increased dyspnea, severe pain, prior history status post recent Wander fundoplication flynn r. TECHNIQUE: Imaging performed of the abdomen and pelvis with IV contrast. Single phase imaging of the abdomen. Coronal and sagittal reformats are submitted. All CT scans at [facility] use at [facility] one of these dose optimization techniques: automated exposure control; mA and/or kV adjustment per patient size (includes targeted exams where dose is matched to clinical indication); or iterative re construction. IV CONTRAST: Omnipaque 350; 100 mL IV. Oral contrast: No DLP: 1448.83 mGy.cm COMPARISON: CT 08/07/2023 Lower thorax: Bibasilar linear atelectasis, greatest on the LEFT. Very small LEFT pleural effusion. H eart is normal size. There is a small amount of pneumomediastinum. There is air in the anterior media stinum, just anterior to the heart. There is also a small amount of air along the RIGHT lateral dista l esophagus. There is fluid surrounding the distal esophagus but greatest posterior and to the RIGHT. New surgical clips are noted in the upper abdomen and along the LEFT lower thorax. Surgical clips sl ightly removed from the postoperative site. Liver/biliary system: Normal size liver. There is a small amount of air anterior to the liver. Gallbladder: Prior cholecystectomy. Pancreas: Normal size pancreas and pancreatic duct. No adjacent inflammation. Spleen: Normal size spleen. No mass or infarct. Adrenal glands: Normal. Right kidney: Normal. Left kidney: Normal. Aorta: Normal. Lymphadenopathy: None. Free fluid: None. GI tract: Stomach is markedly distended with fluid. There is also air in the stomach. Proximal duoden um is fluid-filled. There is additional fluid within the small bowel but is becoming more normal size distally. Normal colon. Abdominal wall: Ventral abdominal wall fat stranding with a few foci of air from the recent laparosco pic trocar placements. No fluid collection within the abdominal wall. Pelvis: No free fluid or adenopathy within the pelvis. Urinary bladder is well distended. There is a tiny amount of air in the urinary bladder. This may be due to recent instrumentation. Bones: Unremarkable. CT/CT abdomen pelvis w con* [id number] IMPRESSION: 1. Postoperative changes at the GE junction of a recent laparoscopic Wander fu ndoplication. 2. There is a small amount of extraluminal air adjacent to the distal esophagu s. Additional pneumomediastinum and a few small foci of air along the surface o f the liver. These may all be changes of the recent surgery but will need close follow-up to exclude a perforation in the distal esophagus. 3. There is a small amount of fluid and edema partially surrounding the distal esophagus at the site of the surgery. 4. Bibasilar areas of atelectasis, LEFT greater than RIGHT. 5. Very small LEFT pleural effusion. 6. Marked fluid and air distention of the stomach and proximal small bowel. Holder spect of mild ileus.
--- NOTE | 2023-12-22 08:43 | XR_ITS ---
WS: [id number] Examination: XR chest 1V portable [id number] Reason for Exam: Post-op increased dyspnea Date: 12/22/2023 Comparison: 06/08/2022 Findings: The heart is not enlarged. The mediastinum not widened. There is no congestion or effusion Linear opacity is identified in the left base. XR/XR chest 1V portable [id number] Impression: Dominant left lower lobe linear opacity is noted suggesting pneumonia versus at electasis.
--- NOTE | 2023-12-22 08:45 | PC.NURSE ---
Upon rounding with patient, he verbalized increased, severe pain to his abdomen. He is tearful and states that we are attempting to wean off the IV pain medications and took Hydrocodone around 0630, but states his pain is 10/10 and he is currently unable to take a deep breath, sit up, or move slightly in bed. He also c/o increased dyspnea since 12/20, which is a change as patient has been ambulating in the hallway with his spouse and minimal assistance. He verbalized that the [employer] N[employer] that was just in had a low fever when she obtained his temperature. Upon investigation, that temperature was 100.0F orally. Upon auscultation, lung sounds are diminished in the bilateral lower lobes and patient c/o productive cough that is clear and thick. I called and spoke with Dr. Mckinley and let him know that I was concerned about severe, uncontrolled pain if patient was d/c'd on Hydrocodone only today and reviewed lung sounds, productive cough, and elevated temp. He provided a verbal order for CXR STAT, CT of Abdomen and pelvis with oral and IV contrast, and IS. RBVO entered per protocol. Patient continues to be tearful d/t uncontrolled pain, Dilaudid administered as ordered for breakthrough pain. I provided patient and spouse education on splinting position with pillow when moving from sitting to laying and when coughing and deep breathing and with ambulation if needed. He and spouse verbalize understanding and patient was able to return demonstration of splinting. He also states that d/t his PTSD, he does have claustrophobia on occassion, Ativan administered as CT will be ready in around an hour. Gianna Bai LPN at bedside with me during patient care and conversations with Dr. Mckinley.
[2023-12-22] MEDS: LORazepam 2 mg/mL INJ 1 mL 1 MG IVP ×2 (08:51→14:09)
[2023-12-22] MEDS: atorvastatin 40 mg Tablet PO (09:09)
[2023-12-22] MEDS: ketorolac 30 mg/mL INJ IVP ×2 (09:33→16:17)
[2023-12-22] MEDS: iohexol 350 mg/mL 500 mL Btl (per mL) IV ×2 (09:48→14:24)
--- NOTE | 2023-12-22 11:46 | CT_ITS ---
WS: [id number] CT ABDOMEN WITH CONTRAST HISTORY: Repeat d/t first scan from this morning Contiguous single phase 5 mm axial imaging performed to the abdomen. Oral contrast has been provided. Coronal and sagittal reformats are submitted. All CT scans at [facility] use at least one of these dose optimization techniques: automated exposure control; mA and/or kV adjustment per patient size (includes targeted exams where dose is matched to clinical indication); or iterative reconstruct ion. IV CONTRAST: Omnipaque 350; 100 mL IV. Oral contrast: Yes. DLP: 848.77 mGy.cm COMPARISON: 12/22/2023 Compared to the recent CT earlier the same day there does appear to been some improvement in the appe arance of the distal esophagus and the paraesophageal edema and soft tissue. There is less air noted around the distal esophagus. Small persistent pneumomediastinum. The edema appears slightly improved around the esophagus. There is now oral contrast in the stomach. No extraluminal extension of the con trast. There is still a small amount of air along the RIGHT lateral esophagus. Bibasilar atelectasis. Slightly greater on the LEFT. Very tiny LEFT pleural effusion is not increasin g. There is still fluid distention of the stomach. Variable density within the stomach. There is a surgical clip adjacent to a small amount of air in the stomach mucosa. There is mild adjac ent gastric thickening. Gastric thickening appears slightly more prominent than on the prior study. CT/CT abdomen w con* [id number] IMPRESSION: 1. Repeat CT examination after oral contrast demonstrates no extraluminal extr avasation of contrast. 2. There does appear to be slight improvement in the amount of edema and fluid surrounding the distal esophagus. 3. Small amount of persistent air along the RIGHT lateral esophagus but not pr ogressing. There is a small amount of free air along the superior surface of th e liver. Mild pneumomediastinum reidentified. 4. Small LEFT pleural effusion but no progression. 5. There is mild gastric wall thickening with a small amount of air and adjace nt surgical clip seen best on the sagittal reformat, image 34 through 37 of ser ies 7. Slightly more prominent gastric wall thickening and the adjacent air may need to be further evaluated as the postoperative course continues.
--- NOTE | 2023-12-22 15:40 | P.PN_ITS ---
Subjective 2 Subjective: Patient still having significant pain. Requiring every 2 hours Dilaudid. No BM or flatus Vitals/I&O/Wt Last Vital Signs Temp 99.0 F 12/22/23 12:00 Pulse 97 12/22/23 12:00 Resp 20 H 12/22/23 12:00 BP 131/82 12/22/23 12:00 Pulse Ox 94 12/22/23 12:00 O2 Del Method Room Air 12/22/23 12:00 O2 Flow Rate 1 12/21/23 04:20 12/22/23 12/22/23 12/22/23 06:59 14:59 22:59 Intake Total 550 / 4956.667 2696.667 / 2696.667 Balance 550 / 101.828 6937.667 / 2696.667 Weight last 48 hrs Weight 336 lb 11.2 oz Weight 330 lb Physical Exam 2 Narrative: General: No acute distress, awake alert and oriented x 3 Abdomen: Soft, nondistended, appropriately tender Incisions clean dry and intact Urinary Catheter Management: [place]: Cath Placed During This Visit: yes, but has since been removed by the nurse Reason for Continuing Indwelling Catheter: Other Urinary Catheter Date of Insertion: 12/20/23 Urinary Catheter Time of Insertion: 12:00 Date Urinary Catheter Removed: 12/21/23 Time Urinary Catheter Discontinued: 18:47 Data 12/22/23 03:21 12/22/23 03:21 A&P Assessment and plan (1) History of repair of hiatal hernia: Plan Postop day #2 status post laparoscopic hiatal hernia repair with Wander fundoplication Pain controlled Ativan 1 mg every 8 hours as needed anxiety. May have 2 mg at night to sleep Full liquid diet CT the abdomen pelvis with IV and oral contrast shows intact hiatal hernia repair with Wander fundoplication without leak Plan to discharge tomorrow Attestations 2 Medical Necessity Statement*: Patient requires 1 for the night in the hospital for pain control and monitoring of atelectasis and elevated body temperature. Plan to discharge home tomorrow Coding Level of Care Code Acute Code for Chg Fwd Diagnoses History of repair of hiatal hernia Z98.890; Z87.19
[2023-12-22] MEDS: oxyCODONE-APAP 10-325 mg Tablet 1 TAB PO (19:38)
[2023-12-22] MEDS: LORazepam 2 mg/mL INJ 1 mL IVP (21:03)
[2023-12-23] VITALS (7 sets, daily range): BP systolic 121–150; BP diastolic 76–89; PULSE 70–79; RESP 16–20; TEMP 36.5–36.8; O2SAT 96–97; BMI 41.2
[2023-12-23] MEDS: oxyCODONE-APAP 10-325 mg Tablet 1 TAB PO ×2 (01:43→08:22)
[2023-12-23] MEDS: ketorolac 30 mg/mL INJ IVP (03:56)
[2023-12-23] MEDS: clindamycin 600 MG/50 ML PREMIX 100 MG IV (03:56)
[2023-12-23 05:04] LABS: Basophils % 0.2 %; Eosinophils # 0.1 10^3/uL (0.0-0.8); Eosinophils % 1.2 %; Hematocrit 35.8 % (37-53); Lymphocytes # 2.6 10^3/uL (0.8-4.8); Lymphocytes % 28.9 %; Mean Corpuscular HGB Conc 31.6 g/dL (30-55); Mean Corpuscular Hemoglobin 27.7 pg (27-33); Mean Corpuscular Volume 87.7 fl (82-101); Mean Platelet Volume 9.8 fL (7.4-10.4); Monocytes # 0.8 10^3/uL (0.2-0.9); Monocytes % 8.7 %; Neutrophils # 5.31 10^3/uL (1.8-7.7); Neutrophils % 60.3 %; Nucleated Red Blood Cells % 0 %; Platelet Count 166 10^3/cmm (157-399); Red Blood Count 4.08 10^6/uL (3.85-5.65); Red Cell Distribution Width 13.1 % (12.1-15.1); White Blood Count 8.82 10^3/uL (3.29-11.43)
[2023-12-23 05:28] LABS: Anion Gap 14.5 (5-19); Blood Urea Nitrogen 5 mg/dL (6-20); Calcium 8.1 mg/dL (8.5-10.5); Carbon Dioxide 23 mmol/L (22-29); Chloride 104 mmol/L (98-107); Creatinine Clr Calc Pharmacy 235.1139; Glomerular Filtration Rate 129.1 mL/min (90-130); Glucose 114 mg/dL (65-115); Osmolality Calculated 284 mOsm/kg (285-295); Potassium 3.5 mmol/L (3.5-5.1); Sodium 138 mmol/L (136-145)
[2023-12-23] MEDS: pantoprazole 40 mg SDV IVP (06:04)
[2023-12-23] MEDS: dextrose 5%-sod chloride 0.45% 1,000 ML 100 ML IV (06:05)
[2023-12-23] MEDS: heparin 5,000 unit/mL INJ 1 mL 5000 UNIT SUBCUT (06:05)
[2023-12-23] MEDS: HYDROmorphone 1 mg/mL INJ 1 mL IVP ×2 (06:16→10:38)
[2023-12-23] MEDS: atorvastatin 40 mg Tablet PO (08:22)
--- NOTE | 2023-12-23 09:34 | P.DS_ITS ---
Discharge Providers Date of Admission: 12/21/23 15:01 Date of Discharge: December 23, 2023 Attending Provider at Admission: Lane Mckinley DO Attending Provider at Discharge: Lane Mckinley DO Primary Care Provider: Orly Hart MD Diagnoses at Discharge Discharge Diagnosis (1) History of repair of hiatal hernia: Status: Acute Reason for Visit Reason for Visit: K44.9 Brief History: Laparoscopic Wander fundoplication with hiatal hernia repair Hospital Course Hospital Course This very pleasant 33-year-old gentleman who came in for an outpatient Wander fundoplication with hiatal hernia repair laparoscopically. He stayed 3 days postoperatively due to difficult to control postoperative pain. He was tolerating a full liquid diet and pain was controlled upon discharge Physical Exam Narrative: General : Patient is well developed , no acute distress, oriented x3 Head : Normal cephalic, a-traumatic. Ears : Pinnae and external canal are normal. Hearing is normal. Eyes : PERRLA, Sclera and injection are normal. No conjunctival discharge. Nose : Mucous membranes are without erythema. Throat : buccal mucosa is normal, gums are without significant recession or hypertrophy. Lungs : Equal chest rise bilaterally, no use of accessory muscles, trachea is midline. Cor : Rate and rhythm are normal. Abdomen : Soft, ND, appropriately tender, no g/r/m Extremities : No edema, no cyanosis or clubbing, dorsalis pedis pulses are present bilaterally, non-tender to palpation of calves. Upper extremities are normal bilaterally. Back : non-tender to palpation, no CVA tenderness. Neuro : CN II - XII intact, Upper and lower extremities have equal and full strength Urinary Catheter Management: [place]: Cath Placed During This Visit: yes, but has since been removed by the nurse Reason for Continuing Indwelling Catheter: Other Urinary Catheter Date of Insertion: 12/20/23 Urinary Catheter Time of Insertion: 12:00 Date Urinary Catheter Removed: 12/21/23 Time Urinary Catheter Discontinued: 18:47 Discharge Data Studies Completed and Pending Completed Studies During Hospitalization Category Date Time Status CT abdomen pelvis w con* [id number] Routine Cat Scan 12/22/23 08:[address] abdomen w con* [id number] Stat Cat Scan 12/22/23 11:46 Completed XR chest 1V portable [id number] Stat Exams 12/22/23 08:43 Completed Radiology Impressions Abdomen/Pelvis CT 12/22/23 08:39 IMPRESSION: 1. Postoperative changes at the GE junction of a recent laparoscopic Wander fundoplication. 2. There is a small amount of extraluminal air adjacent to the distal esophagus. Additional pneumomediastinum and a few small foci of air along the surface of the liver. These may all be changes of the recent surgery but will need close follow-up to exclude a perforation in the distal esophagus. 3. There is a small amount of fluid and edema partially surrounding the distal esophagus at the site of the surgery. 4. Bibasilar areas of atelectasis, LEFT greater than RIGHT. 5. Very small LEFT pleural effusion. 6. Marked fluid and air distention of the stomach and proximal small bowel. Suspect of mild ileus. Chest X-Ray 12/22/23 08:43 Impression: Dominant left lower lobe linear opacity is noted suggesting pneumonia versus atelectasis. Abdomen CT 12/22/23 11:46 IMPRESS[address]: 1[address] Repeat [address] examination after oral contrast demonstrates no extraluminal extravasation of contrast. 2. There does appear to be slight improvement in the amount of edema and fluid surrounding the distal esophagus. 3. Small amount of persistent air along the RIGHT lateral esophagus but not progressing. There is a small amount of free air along the superior surface of the liver. Mild pneumomediastinum reidentified. 4. Small LEFT pleural effusion but no progression. 5. There is mild gastric wall thickening with a small amount of air and adjacent surgical clip seen best on the sagittal reformat, image 34 through 37 of series 7. Slightly more prominent gastric wall thickening and the adjacent air may need to be further evaluated as the postoperative course continues. Laboratory Results WBC 8.82 10^3/uL (3.29-11.43) 12/23/23 04:38 RBC 4.08 10^6/uL (3.85-5.65) 12/23/23 04:38 Hgb 11.30 g/dL (11.27-16.99) 12/23/23 04:38 Hct 35.8 % (37-53) L 12/23/23 04:38 MCV 87.7 fl (82-101) 12/23/23 04:38 MCH 27.7 pg (27-33) 12/23/23 04:38 MCHC 31.6 g/dL (30-55) 12/23/23 04:38 RDW 13.1 % (12.1-15.1) 12/23/23 04:38 Plt Count 166 10^3/cmm (157-399) 12/23/23 04:38 MPV 9.8 fL (7.4-10.4) 12/23/23 04:38 Neut % (Auto) 60.3 % 12/23/23 04:38 Lymph % (Auto) 28.9 % 12/23/23 04:38 Willacy % (Auto) 8.7 % 12/23/23 04:38 Eos % (Auto) 1.2 % 12/23/23 04:38 Baso % (Auto) 0.2 % 12/23/23 04:38 Neut # (Auto) 5.31 10^3/uL (1.8-7.7) 12/23/23 04:38 Lymph # (Auto) 2.6 10^3/uL (0.8-4.8) 12/23/23 04:38 Willacy # (Auto) 0.8 10^3/uL (0.2-0.9) 12/23/23 04:38 Eos # (Auto) 0.1 10^3/uL (0.0-0.8) 12/23/23 04:38 Baso # (Auto) 0.0 10^3/uL (0.0-0.1) 12/23/23 04:38 Nucleated RBC % (auto) 0 % 12/23/23 04:38 Nucleated RBCs # 0.0 /100WBC 12/23/23 04:38 Sodium 138 mmol/L (136-145) 12/23/23 04:38 Potassium 3.5 mmol/L (3.5-5.1) 12/23/23 04:38 Chloride 104 mmol/L (98-107) 12/23/23 04:38 Carbon Dioxide 23 mmol/L (22-29) 12/23/23 04:38 Anion Gap 14.5 (5-19) 12/23/23 04:38 BUN 5 mg/dL (6-20) L 12/23/23 04:38 Creatinine 0.7 mg/dL (0.7-1.2) 12/23/23 04:38 GFR Calculation 129.1 mL/min (90-130) 12/23/23 04:38 Glucose 114 mg/dL (65-115) 12/23/23 04:38 Calculated Osmolality 284 mOsm/kg (285-295) L 12/23/23 04:38 Calcium 8.1 mg/dL (8.5-10.5) L 12/23/23 04:38 Magnesium 2.0 mg/dL (1.7-2.3) 12/23/23 04:38 Procedures Performed Laparoscopic Wander fundoplication with hiatal hernia repair, EGD Vitals Last Vital Signs Temp 98.2 F 12/23/23 07:24 Pulse 79 12/23/23 07:24 Resp 16 12/23/23 08:22 BP 121/76 12/23/23 07:24 Pulse Ox 96 12/23/23 07:24 O2 Del Method Room Air 12/23/23 07:24 O2 Flow Rate 1 12/21/23 04:20 Discharge Plan Discharge Patient Disposition: Home Condition: Stable Prescriptions: New oxycodone-acetaminophen 10-325 mg tablet 1 tab PO Q6H PRN (Reason: pain) Qty: 28 0RF Colace 100 mg capsule 100 mg PO BID Qty: 14 0RF Miralax 17 gram/dose powder 17 g PO DAILY 7 Days Qty: 119 0RF clindamycin HCl 150 mg capsule 150 mg PO QID 7 Days Qty: 28 0RF Continued atorvastatin 40 mg tablet 40 mg PO DAILY Rx Instructions: TAKE 1 TABLET BY MOUTH DAILY pantoprazole 40 mg tablet,delayed release (DR/EC) 40 mg PO BID Rx Instructions: TAKE 1 TABLET BY MOUTH TWICE DAILY Discharge Orders: Discharge Order (Routine); Ordered 12/23/23 Ordered By: Lane Mckinley Referrals: Lane Mckinley DO [Physician] - Discharge Diet: Full LIquid Discharge Activity: Resume usual activity Patient Instructions: Acute Wound Care (DC), Opioid Safety, Post Anesthesia Care Activity Restrictions/Additional Instructions: Do not soak incisions underwater for 2 weeks. Shower regularly. Let the glue fall off on its own. Eat a full liquid diet for another 2 days and then slowly introduce soft foods. Do not eat hard foods like steak, hard vegetables, toast, crackers etc. for 4 weeks Discharge Attestations Time Spent in Discharge Care*: less than 30 min Quality Metrics Clinical Quality Measures [ No reported AMI, CVA or VTE this stay] Coding Level of Care Code Acute Code for Chg Fwd Diagnoses History of repair of hiatal hernia Z98.890; Z87.19
== END 2023-12-23 11:15 | disposition home or self-care (01) | DRG 327 ==
LOC: MEDSURG 12-21 10:34
PROVIDERS: Admitting Provider Surgery; PCP Family Medicine; Visit Provider Surgery
PROC: 0BQT4ZZ Repair Diaphragm, Percutaneous Endoscopic Approach (ICD-10-PCS; principal; 2023-12-20 11:35)
PROC: 0DV44ZZ Restriction of Esophagogastric Junction, Percutaneous Endoscopic Approach (ICD-10-PCS; CPT 43280; 2023-12-20 11:35)
PROC: 0DJ08ZZ Inspection of Upper Intestinal Tract, Via Natural or Artificial Opening Endoscopic (ICD-10-PCS; CPT 43235; 2023-12-20 11:35)
DX: K44.9 Diaphragmatic hernia without obstruction or gangrene (principal); Z68.41 Body mass index [BMI] 40.0-44.9, adult; Z87.11 Personal history of peptic ulcer disease; E66.9 Obesity, unspecified; K21.9 Gastro-esophageal reflux disease without esophagitis; F43.10 Post-traumatic stress disorder, unspecified; F41.9 Anxiety disorder, unspecified
CPT/HCPCS: 36415; 51702; 71045; 74160; 74177; 80048; 83735; 85025; 96372; G0378; J0330; J1100; J1170; J1644; J1885; J2060; J2250; J2405; J2470; J2704; J3010; J3372; J3490; J7030; J7799

== ENCOUNTER → 2023-12-28 14:38 | Outpatient (BNVA) | payer BC, SELFPAY | PROVIDERS: PCP Family Medicine; Visit Provider Family Medicine | DX: R10.9 Unspecified abdominal pain (principal) | CPT/HCPCS: 80053; 85025 ==

== ENCOUNTER 2025-03-26 17:06 | Emergency (ER) | payer BC, SELFPAY ==
--- NOTE | 2025-03-26 17:14 | ECG_ITS ---
[facility] Test Date: 2025-03-26 Pat Name: Reji Amezquita Department: Room: Gender: Male Birth Certificate Clerk: : 1990 Requested By: Guillaume Yeager Order Number: [id number] José Miguel MD: Bernardo Olvera M.D. 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 [email or web address]
[2025-03-26 17:15] VITALS: BP 159/96; PULSE 78; RESP 18; TEMP 36.5; O2SAT 99
--- NOTE | 2025-03-26 17:17 | XRR_ITS ---
PROCEDURE INFORMATION: Exam: XR Chest Exam date and time: 03/26/2025 5:20 PM Age: 35 years old Clinical indication: Pain; Chest pressure; Additional info: Cp TECHNIQUE: Imaging protocol: Radiologic exam of the chest. Views: 1 view. COMPARISON: CR XR chest 1V portable [id number] 12/22/2023 8:59 AM FINDINGS: Lungs: Unremarkable. No consolidation. Pleural spaces: Unremarkable. No pleural effusion. No pneumothorax. Heart/Mediastinum: Unremarkable. No cardiomegaly. Bones/joints: Unremarkable. XR/XR chest 1V portable [id number] IMPRESSION: No acute findings.
[2025-03-26 17:48] LABS: Hematocrit 43.6 % (37-53); Hemoglobin 14.70 g/dL (11.27-16.99); Mean Corpuscular HGB Conc 33.7 g/dL (30-55); Mean Corpuscular Hemoglobin 28.5 pg (27-33); Mean Corpuscular Volume 84.7 fl (82-101); Nucleated Red Blood Cells % 0 %; Platelet Count 212 10^3/cmm (157-399); Red Blood Count 5.15 10^6/uL (3.85-5.65); White Blood Count 10.01 10^3/uL (3.29-11.43)
[2025-03-26 18:06] LABS: Alanine Aminotransferase 50 U/L (0-41); Albumin Level 4.7 g/dL (3.5-5.2); Alkaline Phosphatase 115 U/L (40-130); Anion Gap 20.0 (5-19); Aspartate Amino Transferase 30 U/L (0-40); Blood Urea Nitrogen 13 mg/dL (6-20); Calcium 9.5 mg/dL (8.5-10.5); Carbon Dioxide 21 mmol/L (22-29); Chloride 104 mmol/L (98-107); Globulin 3.3 g/dL (1.3-4.6); Glucose 104 mg/dL (65-115); Osmolality Calculated 292 mOsm/kg (285-295); Potassium 4.0 mmol/L (3.5-5.1); Sodium 141 mmol/L (136-145); Total Protein 8.0 g/dL (6.6-8.7)
--- NOTE | 2025-03-26 18:22 | ECG_ITS ---
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 Measurements Intervals [place] Rate: 69 P: 32 CT: 189 QRS: -11 QRSD: 110 T: 1 QT: 396 QTc: 426 Interpretive Statements SINUS RHYTHM Compared to ECG 03/26/2025 17:14:04 No significant changes Electronically Signed On 03-28-2025 17:59:49 WELDER FITTER by Bernardo Olvera M.D. [email or web address]
[2025-03-26 18:24] LABS: Troponin(5th) Baseline < 6 ng/L (0-15)
[2025-03-26 18:31] VITALS: BP 148/100; PULSE 71; O2SAT 98
[2025-03-26 19:00] VITALS: BP 132/84; PULSE 75; PULSE 78; O2SAT 95; O2SAT 98
--- OUTSIDE RECORDS SUMMARY | 2025-03-26 19:20 | XMS_ITS | Data Portability ---
Author Organization [facility], [facility] Address [address] [address] Assessment Encounter Date Assessment Date Assessment LastModified by Organization Details LastModified Time 12/01/2022 12/01/2022 Xrays were obtained in the office today. Findings appear to be consistent with no acute changes, fractures or dislocation noted. We will send xr for over-read with radiology. Will allow to WBAT in the hinged knee brace for gentle compression and support of the knee. APAP PRN for discomfort. Take IBU 800mg as prescribed. HOME will have script for knee brace. Have fitted today. Due to exam findings, I am concerned he may have a posterior medial meniscus tear. I would like to order MRI without contrast for further evaluation. If patient will need to see ORTHO, he would like to see Dr. Jose Mccormick in [place], [place]. F/U PRN in the walk-in clinic. Establish with PCP. Patient verbalized understanding and agreement with plan of care. Will call with questions or concerns. Not available 12/01/2022 12:30:36 12/06/2022 12/06/2022 Continue knee brace for support. Will allow to WBAT in the hinged knee brace for gentle compression and support of the knee. Crutches if needed. APAP PRN for discomfort. Does not tolerate IBU 800mg TID. Will start meloxicam and diclofenac. Continue GERD medication. Exam is still positive for probable meniscus tearing. Will proceed with MRI as previously ordered. Will give note for work, due to inability to stay standing, without significant pain, instability and swelling. Establish with PCP. Patient verbalized understanding and agreement with plan of care. Will call with questions or concerns. Not available 12/06/2022 13:26:09 Plan of Treatment Reminders Order Date Submit Date Provider Last Modified By Organization Details Last Modified Time Details Appointments None recorded. Lab None recorded. Referral None recorded. Procedures None recorded. Surgeries None recorded. Imaging XR, knee, 3 view 2022 023 [facility] ([facility]), [address] [place], [address], 3 13:26:03 MRI, knee, w/o contrast - RGHT KNEE 2022 023 [facility] (Scheduling Orders), [address] [place], [address], 3 22:44:19 Medication Orders meloxicam 15 mg tablet 2022 023 [facility], [address], [place], [address], 3 09:51:19 diclofenac 1 % topical gel 2022 023 [facility] 15, [address], [place], [address], 3 09:51:20 ibuprofen 800 mg tablet 2022 023 [facility], [address], [place], [address], 3 10:07:28 Patient TargetsNo targets recorded. Patient InstructionsNo instructions recorded. Reason for Referral None Reported. Results Created Date Observation Date Name Description Value Unit Range Abnormal Flag Note LastModifiedBy Organization Detail LastModifiedTime 12/02/19 23 12/01/2022 XR, knee, 3 view No observ ation record ed. [address], [place], [address], 12/04/2022 14:52:36 12/06/19 23 12/01/2022 XR, knee, 3 view No observ ation record ed. [email or web address] [facility] [address] [facility], [place], [address], 12/06/2022 10:07:28 12/30/19 23 12/29/2022 MRI, knee, w/o contr ast No observ ation record ed. [email or web address] [facility] [address] [facility], [place], [address], 12/31/2022 11:53:05 Result Notes None recorded. Medical Equipment None Reported. Allergies Allergen ID Allergen Name Allergen Category Reaction Reaction Severity Criticality Documentation Date Start Date Code Code System Note Provider Name and Address Organization Details Recorded Time 09144 amoxicill in medicatio n swelling moderate Not available 12/01/2022 723 RxNorm Rachel day [facility], [facility] 3 09:19:40 32605 Product containin g penicilli n (product) medicatio n Not available Not available Not available 12/06/2022 46654 8001 SNOMED Rachel day [facility], L[facility] 3 09:22:08 Medications Name Sig Start Date Stop Date Status Note LastModified by Organization Details LastModified Time ibuprofen 800 mg tablet Take 1 tablet 3 times a day by oral route as needed for 30 days. 12/06 completed Not Available Not Available Not Available meloxicam 15 mg tablet Take 1 tablet every day by oral route for 30 days. 2022 active Not Available Not Available Not Avai lable diclofenac 1 % topical gel APPLY 2 GRAMS TO THE AFFECTED AREA(S) BY TOPICAL ROUTE 4 TIMES PER DAY 2022 active Not Available Not Available Not Avai lable Vitals Date Recorded Body height Body mass index (BMI) Body weight Oxygen saturation Heart rate Respiratory rate Body temperature Systolic And Diastolic Provider Name and Address Organization Details Last Updated DateTime 3 190.5 cm 38.7 kg/m2 605820. 63 g 98 % 76 /min 20 /min 97.1 [degF] 130/70 mm[Hg] Rachel Lemon [facility], L[facility] 3 09:19:00 Date Recorded Body height Body mass index (BMI) Body weight Oxygen saturation Heart rate Body temperature Respiratory rate Systolic And Diastolic Provider Name and Address Organization Details Last Updated DateTime 3 190.5 cm 39.1 kg/m2 658333. 41 g 96 % 75 /min 96.9 [degF] 20 /min 100/70 mm[Hg] Racehl Lemon [facility], [facility] 3 09:21:01 Social History None recorded. Functional Status None recorded. Mental Status None recorded. Family History Nothing Reported. Medical History No medical history recorded. Past Encounters Encounter ID Performer Location Encounter Start Date Encounter Closed Date Diagnosis/Indication Diagnosis SNOMED-CT Code Diagnosis ICD10 Code Diagnosis IMO Codes Diagnosis Note [id number] RASHAAD HUTCHINS [facility] ([facility]) [address] [place] [address] 12/01/2022 09:08:55 12/01/2022 12:46:41 Pain of right knee joint 8943715927 13183 M25.561 Instabilit y of joint of right knee 2259620478 356880 M25.361 Katelyn t est positive 670858894 R29.898 Medially. Working dx of meniscus tear. [id number] RASHAAD HUTCHINS [facility]) [address] [place] [id number] 12/06/2022 09:00:02 12/06/2022 13:13:14 Pain of right knee joint [id number] 03389 M25.561 Instabilit y of joint of right knee 1951338659 390276 M25.361 Katelyn t est positive 588169221 R29.898 Medially. Working dx of meniscus tear. Health Concerns Section Related Observation LastModified by Organization Detai ls LastModified Time None Recorded Concern Status LastModified by Organization Details LastModified Time None Recorded Advance Directives Directive None Recorded Payers Insurance Date Sequence Insurance Name Policy Number Policy Steen Covered Member ID Steen Member ID Guarantor Name 12/08/2022 1 [employer]-GERALDO (PPO) [id number] 3 Reji Amezquita [id number] Rejichrist Amezquita Notes Date Note Type Note Provider Name and Address Organization Details Recorded Time 12/01/2022 text/html Joint PainReport ed by PatientHPIFor quality, patient reportssharp. For severity, patient reportsinterferes with sleepandinterferes with work/school. For location, patient reportsright knee. For duration, patient reportspresent <1 month (5 days ago (11/26/22).). For timing, patient reportsconstant. For context, patient reportstrauma. For alleviating factors, patient reportsrest. For aggravating factors, patient reportsmovement/positio ningandtwisting. For associated symptoms, patient reportsno feverandno weak limbs. For adls affected, patient reportsclimbing stairs.ROS as noted in the HPI When he jumped down, his right knee gave out and he fell to thr ground. A few hours later he began having pain and weakness. Has sx of locking, popping and catching. Swelling and bruising noted over the weekend.Has some acute tingling and decreased sensation from the right knee to the foot. Does have a hx of Rt sided sciatica. DDD to the spine, with kyphosis. JEREMÍAS GARCIA, [address], [address], [facility], [place]. 12/01/2022 12:32:05 12/06/2022 text/html Joint PainReport ed by PatientHPIFor quality, patient reportssharp. For severity, patient reportsinterferes with sleepandinterferes with work/school. For location, patient reportsright knee. For duration, patient reportspresent <1 month (10 days ago (11/26/22).). For timing, patient reportsconstant. For context, patient reportstrauma. For alleviating factors, patient reportsrest. For aggravating factors, patient reportsmovement/positio ningandtwisting. For associated symptoms, patient reportsno feverandno weak limbs. For adls affected, patient reportsclimbing stairs.here for follow up while waiting for MRI to be approved and scheduled.ROS as noted in the HPI DOI: 11/26/22 - When he jumped down, his right knee gave out and he fell to thre ground. A few hours later he began having pain and weakness. Has sx of locking, popping and catching. Bruising resolved. Swelling remains throughout the knee JEREMÍAS GARCIA, [facility] [place], [address], [facility] 12/07/2022 08:30:20
[2025-03-26 19:30] VITALS: BP 123/81; PULSE 79; O2SAT 97
[2025-03-26 19:40] VITALS: PULSE 95; RESP 22; O2SAT 97
--- NOTE | 2025-03-26 19:43 | W.ED.CHESTPA ---
HPI - Chest Pain General: Chief Complaint: Chest Pain Stated Complaint: CP Headache N Time Seen by Provider: 03/26/25 17:59 History of Present Illness: 35-year-old male presents emergency complaints had a steak and a headache. He has a history of hiatal hernia with a Wander fundoplication still has some reflux symptoms. Does not have any vomiting or diarrhea no hematochezia melena hematemesis or coffee-ground emesis no history of any arrhythmias. Associated symptoms: Deny abdominal pain, dyspnea or fever(s) Related Data Home Medications ?Medication ?Instructions ?Recorded ?Confirmed atorvastatin 40 mg tablet 40 mg PO DAILY 12/16/23 02/11/24 pantoprazole 40 mg tablet,delayed 40 mg PO BID 12/16/23 02/11/24 release Previous Rx's ?Medication ?Instructions ?Recorded pantoprazole 40 mg tablet,delayed 40 mg PO BID #40 tabs 03/26/25 release Allergies Allergy/AdvReac Type Severity Reaction Status Date / Time amoxicillin Allergy Intermediate RASH Verified 01/02/24 08:03 Review of Systems Const: Denies: fever(s) or chills Card: Denies: chest pain Resp: Denies: dyspnea GI: Denies: abdominal pain : Denies: dysuria, urinary frequency or urinary urgency Musc: Denies: neck pain or back pain Skin/Breast: Denies: rash PFSH ED PFSH: Medical History History of peptic ulcer disease Obesity Migraines GERD (gastroesophageal reflux disease) PTSD (post-traumatic stress disorder) Anxiety Surgical History History of repair of hiatal hernia History of cholecystectomy Family History Grandfather Congestive heart failure (CHF) Grandmother Cancer Social History Smoking and tobacco/nicotine status: never used tobacco/nicotine Alcohol intake: never Substance/Drug Use: never Household members: significant other and children Marital status: Number of children: 3 service: Yes branch: [employer] Assignments: Deployed Countries/Dates of Deployments: [place] Current occupational status: employed 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/Episcopalian: Scientology Special chantel needs: No Agree to transfusion: Yes Physical Exam Const: COMMON NORMALS: no acute distress GENERAL APPEARANCE: cooperative and comfortable ORIENTATION/CONSCIOUSNESS: Yes awake, Yes oriented to person, Yes oriented to place and Yes oriented to time HENMT: COMMON NORMALS: normocephalic, atraumatic and hearing grossly normal bilaterally HEAD & SCALP: normocephalic and atraumatic Resp: COMMON NORMALS: normal respiratory effort, No retractions, No use of accessory muscles and clear to auscultation bilaterally AUSCULTATION: clear to auscultation bilaterally Cardio: COMMON NORMALS: regular rate, regular rhythm and No murmurs present (Cardio) RATE: regular rate RHYTHM: regular rhythm GI: COMMON NORMALS: Soft to palpation and No hepatosplenomegaly present AUSCULTATION: Yes normoactive bowel sounds PALPATION: Yes Soft to palpation, No Tenderness to palpation present (GI), No Guarding due to palpation present (GI) and Yes No hepatosplenomegaly present Extremity: COMMON NORMALS: normal to inspection, capillary refill normal, no clubbing, cyanosis or edema, no calf tenderness and no pedal edema Neuro: SENSORIUM/ORIENTATION: Yes oriented to person, Yes oriented to place and Yes oriented to time Skin: COMMON NORMALS: no rashes or lesions noted GENERAL SKIN EXAM: no rashes or lesions noted Course Vital Signs: Vital signs: Vital Signs Temperature 97.7 F 03/26/25 17:15 Pulse Rate 72 03/26/25 19:57 Respiratory Rate 18 03/26/25 17:15 Blood Pressure 123/81 03/26/25 19:57 Pulse Oximetry 98 03/26/25 19:57 Oxygen Delivery Me thod Room Air 03/26/25 19:30 Fraction of Inspir ed Oxygen 70 03/26/25 19:40 MDM - Chest Pain Medical Decision Making Medical decision making Social determinants: None I reviewed the patient's medical record. I reviewed the patient's current home meds. Alternate historians: None Differential diagnosis: Acute coronary syndrome reflux atypical chest pain Lab Review: Labs reviewed no significant findings CBC and chemistry panels do not have any significant abnormalities troponins both detectable limits Imaging: Chest x-ray no acute finding no effusions no infiltrates Assessment of risk Level of risk: Moderate Hospitalization considerations: Workup for chest pain may require hospitalization pending results Reexamination: No further discomfort Assessment and plan: EKG no acute changes troponins undetectable labs otherwise unremarkable based on his history specked a lot of this is reflux we will start him on pantoprazole and follow-up with his primary care doctor return if has further symptoms Lab Data 03/26/25 17:41 03/26/25 17:41 Radiology Impressions Chest X-Ray 03/26/25 17:17 IMPRESSION: No acute findings. Laboratory Results WBC 10.01 10^3/uL (3.29-11.43) 03/26/25 17:41 RBC 5.15 10^6/uL (3.85-5.65) 03/26/25 17:41 Hgb 14.70 g/dL (11.27-16.99) 03/26/25 17:41 Hct 43.6 % (37-53) 03/26/25 17:41 MCV 84.7 fl (82-101) 03/26/25 17:41 MCH 28.5 pg (27-33) 03/26/25 17:41 MCHC 33.7 g/dL (30-55) 03/26/25 17:41 RDW 12.9 % (12.1-15.1) 03/26/25 17:41 Plt Count 212 10^3/cmm (157-399) 03/26/25 17:41 MPV 9.6 fL (7.4-10.4) 03/26/25 17:41 Neut % (Auto) 59.9 % 03/26/25 17:41 Lymph % (Auto) 32.3 % 03/26/25 17:41 [place] % (Auto) 6.0 % 03/26/25 17:41 Eos % (Auto) 1.1 % 03/26/25 17:41 Baso % (Auto) 0.3 % 03/26/25 17:41 Neut # (Auto) 6.00 10^3/uL (1.8-7.7) 03/26/25 17:41 Lymph # (Auto) 3.2 10^3/uL (0.8-4.8) 03/26/25 17:41 [place] # (Auto) 0.6 10^3/uL (0.2-0.9) 03/26/25 17:41 Eos # (Auto) 0.1 10^3/uL (0.0-0.8) 03/26/25 17:41 Baso # (Auto) 0.0 10^3/uL (0.0-0.1) 03/26/25 17:41 Nucleated RBC % (auto) 0 % 03/26/25 17:41 Nucleated RBCs # 0.0 /100WBC 03/26/25 17:41 Sodium 141 mmol/L (136-145) 03/26/25 17:41 Potassium 4.0 mmol/L (3.5-5.1) 03/26/25 17:41 Chloride 104 mmol/L (98-107) 03/26/25 17:41 Carbon Dioxide 21 mmol/L (22-29) L 03/26/25 17:41 Anion Gap 20.0 (5-19) H 03/26/25 17:41 BUN 13 mg/dL (6-20) 03/26/25 17:41 Creatinine 0.9 mg/dL (0.7-1.2) 03/26/25 17:41 GFR Calculation 95.5 mL/min (90-130) 03/26/25 17:41 Glucose 104 mg/dL (65-115) 03/26/25 17:41 Calculated Osmolality 292 mOsm/kg (285-295) 03/26/25 17:41 Calcium 9.5 mg/dL (8.5-10.5) 03/26/25 17:41 Total Bilirubin 0.2 mg/dL (0.15-1.2) 03/26/25 17:41 AST 30 U/L (0-40) 03/26/25 17:41 ALT 50 U/L (0-41) H 03/26/25 17:41 Alkaline Phosphatase 115 U/L (40-130) 03/26/25 17:41 Troponin T Baseline < 6 ng/L (0-15) 03/26/25 17:41 Troponin T 60 Minute < 6.0 ng/L (0-15) 03/26/25 18:40 Delta Troponin T 0 ABS# (0-10) 03/26/25 18:40 Total Protein 8.0 g/dL (6.6-8.7) 03/26/25 17:41 Albumin 4.7 g/dL (3.5-5.2) 03/26/25 17:41 Globulin 3.3 g/dL (1.3-4.6) 03/26/25 17:41 All radiology interpretation(s) finalized by discharge EKG Data EKG 1: I personally reviewed and interpreted this EKG as follows: Interpretation: EKG 03/26/2025 1714 sinus rhythm no acute ST changes noted rate of 77 CA interval [address] elevation, no STEMI. Compared to EKG June 08, 2022 no significant changes EKG 2: I personally reviewed and interpreted this EKG as follows: Interpretation: EKG 03/26/2025 1951 sinus rhythm rate of 69. CA interval 189 QTc 426. No acute ST elevation, no STEMI. Compared to EKG done earlier today send no change Discharge Plan Discharge Patient Disposition: Home Clinical Impression: GERD (gastroesophageal reflux disease), Atypical chest pain Condition: Stable Prescriptions: New pantoprazole 40 mg tablet,delayed release (DR/EC) 40 mg PO BID Qty: 40 0RF Rx Instructions: 1 p.o. twice daily for 10 days then 1 p.o. daily No Action atorvastatin 40 mg tablet 40 mg PO DAILY Rx Instructions: TAKE 1 TABLET BY MOUTH DAILY pantoprazole 40 mg tablet,delayed release (DR/EC) 40 mg PO BID Rx Instructions: TAKE 1 TABLET BY MOUTH TWICE DAILY Discharge Orders: Discharge ED (Routine); Ordered 03/26/25 Ordered By: Jose Vera Referrals: Orly Hart MD [Primary Care Provider, Family Practice] Discharge Diet: Usual diet Discharge Activity: Increase activity as tolerated Patient Instructions: Chest Pain (ED), Opioid Safety, Pain Management, Patient Portal & Jv Instructions Activity Restrictions/Additional Instructions: Thank you for choosing [facility] for your healthcare needs today. It is very important that you follow up as instructed or that you return to the Emergency Department should you have concerns or if your condition changes or worsens in any way. Emergency department visits are focused on emergent conditions, in some cases you may require further evaluation on an outpatient basis. You are seen in the emergency room with complaints of chest. Cardiac enzymes and EKGs were normal. Suspect based on your description of symptoms and or other findings that this is more related to reflux. Recommend you start pantoprazole 1 pill twice a day for 10 days then 1 pill daily and follow-up with your primary care doctor within the next week. (Please note that included in your discharge packet is information concerning opioid safety and pain management. This information is given to all patients were discharged from the ER regardless of their discharge diagnosis or the medicines they usually take or are prescribed.) Print Language: Croatian Coding Level of Care Code ED Education Supervisor for Chg Fwd Heart Score HEART Score Components History: Slightly Suspicous EKG: Normal Age: Less than 45 yrs Risk Factors: No Risk Factors Known Troponin: Baseline Trop <16 ng/L HEART Score RESULT HEART Score: 0
[2025-03-26 19:57] VITALS: BP 123/81; PULSE 72; O2SAT 98
== END 2025-03-26 20:06 | disposition home or self-care (01) ==
PROVIDERS: Physician Assistant; Emergency Provider Family Medicine; PCP Family Medicine
DX: K21.9 Gastro-esophageal reflux disease without esophagitis (principal); R07.89 Other chest pain
CPT/HCPCS: 36415; 71045; 80053; 84484; 85025; 93005; 99285